=== PATIENT | male | born 1965 | race African-American/Black ===

== ENCOUNTER 2017-03-14 10:38 | Emergency (ER) | payer OTHER ==
[~2017-03-14 10:38] MED LIST: ALBUTEROL1.25 MG/3 IH; ALDACTONE25 MG PO; ASA PO; BG MC; COL100 PO; COREG6.25 MG PO; DEXPF IV; DIGOXIN0.125 M1 PO; ENALAPRIL5 M1 PO; GABAPENTIN400 M1 PO; HCTZ PO; HUMULIN R100 U/1 M1 SC; LAC PO; LASIX40 MG PO; LIPI20 PO; MSC15 PO; NITROSTAT0.4 MG SL; ROX5 PO; THERAGRAN-M1 TA4 PO; TYLENOL PO; VANCOMYCIN PER PHARM MC; VITC PO; ZOS3I IV
[2017-03-14 11:43] LABS: CALCIUM 8.5 mg/dL (8.5-10.1); CARBON DIOXIDE 27.8 mmol/L (21-32); CREATININE SERUM 1.5 mg/dL (0.7-1.3); POTASSIUM SERUM 3.9 mmol/L (3.5-5.1)
[2017-03-14 11:53] LABS: BILIRUBIN TOTAL 0.2 mg/dL (0.20-1.00); MAGNESIUM 1.7 mg/dL (1.8-2.4); T4(THYROXINE) 8.6 ug/dL (4.7-13.3); TOTAL PROTEIN, SERUM 8.1 g/dL (6.4-8.2); URIC ACID 6.5 mg/dL (3.5-7.2)
[2017-03-14 11:57] LABS: PLATELET COUNT 424 x10^3mcL (130-400); RED CELL DISTRIBUTION WIDTH 15.7 % (11.5-14.5)
[2017-03-14 11:59] LABS: ALBUMIN 2.8 g/dL (3.4-5.0)
[2017-03-14 12:08] LABS: UA SPECIFIC GRAVITY >=1.030 (1.005-1.035); microscopic required? YES; urine erythrocyte NEGATIVE (NEGATIVE)
[2017-03-14 12:27] LABS: AMPHETAMINE QUAL UR POSITIVE (NEG <=1000)
[2017-03-14 14:13] VITALS: BP 118/68
== END 2017-03-14 14:13 | disposition home or self-care (01) ==
LOC: ED 10:38
PROVIDERS: Emergency Medicine
DX: I13.0 Hypertensive heart and chronic kidney disease with heart failure and stage 1 through stage 4 chronic kidney disease, or unspecified chronic kidney disease (principal); R60.9 Edema, unspecified; E88.09 Other disorders of plasma-protein metabolism, not elsewhere classified; N18.2 Chronic kidney disease, stage 2 (mild); I50.9 Heart failure, unspecified; E11.9 Type 2 diabetes mellitus without complications; F15.10 Other stimulant abuse, uncomplicated; I25.10 Atherosclerotic heart disease of native coronary artery without angina pectoris; Z95.810 Presence of automatic (implantable) cardiac defibrillator; Z88.1 Allergy status to other antibiotic agents
CPT/HCPCS: 83880; J1940; Q0092

== ENCOUNTER 2017-07-26 10:25 | Emergency (ER) | payer OTHER ==
[~2017-07-26] VITALS: Ht 172.7 cm; Wt 117.0 kg
[~2017-07-26 10:25] MED LIST changes: +ATORVASTATIN CA40 M1 PO; +CARVEDILOL3.125 M1 PO; +GABAPENTIN800 M1 PO; +GOOD SENSE ASPI81 M3 PO
[2017-07-26 10:32] VITALS: Ht 172.7 cm; Wt 117.0 kg
[2017-07-26 12:43] VITALS: BP 128/64
== END 2017-07-26 12:43 | disposition home or self-care (01) ==
LOC: ED 10:25
DX: Z76.0 Encounter for issue of repeat prescription (principal); I11.0 Hypertensive heart disease with heart failure; I50.9 Heart failure, unspecified; E11.9 Type 2 diabetes mellitus without complications; Z88.1 Allergy status to other antibiotic agents

== ENCOUNTER 2017-08-06 04:54 | Inpatient (IN) | payer OTHER ==
[~2017-08-06] VITALS: Ht 170.2 cm; Wt 118.6 kg
[2017-08-06 05:00] VITALS: Ht 170.2 cm; Wt 118.6 kg
[2017-08-06 06:12] LABS: PLATELET COUNT 263 x10^3mcL (130-400)
[2017-08-06 06:13] LABS: BASOPHIL % 2.2 % (0-2); RED CELL DISTRIBUTION WIDTH 15.6 % (11.5-14.5)
[2017-08-06 06:24] LABS: CALCIUM 8.9 mg/dL (8.5-10.1); CARBON DIOXIDE 26.9 mmol/L (21-32); CREATININE SERUM 1.5 mg/dL (0.7-1.3); POTASSIUM SERUM 4.1 mmol/L (3.5-5.1)
[2017-08-06 06:30] LABS: BILIRUBIN TOTAL 0.32 mg/dL (0.20-1.00); TOTAL PROTEIN, SERUM 7.4 g/dL (6.4-8.2)
[2017-08-06 06:40] LABS: ALBUMIN 3.1 g/dL (3.4-5.0)
[2017-08-06 07:13] LABS: CALCIUM 8.7 mg/dL (8.5-10.1); MAGNESIUM 1.8 mg/dL (1.8-2.4)
[2017-08-06 08:59] LABS: microscopic required? YES; urine erythrocyte NEGATIVE (NEGATIVE)
[2017-08-06 09:04] LABS: AMPHETAMINE QUAL UR POSITIVE (See below)
[2017-08-06 10:37] VITALS: BP 145/89
[2017-08-06 10:37] LABS: PHOSPHOROUS 4.6 mg/dL (2.5-4.9)
[2017-08-06 10:48] LABS: FREE T4 1.03 ng/dL (0.76-1.46); FREE THYROXINE INDEX 3.2 ug/dL (1.4-4.5); T4(THYROXINE) 8.8 ug/dL (4.7-13.3)
[2017-08-06 20:32] VITALS: BP 121/70
[2017-08-06 22:39] VITALS: BP 121/70
[2017-08-06 23:07] LABS: T3 TOTAL 1.44 ng/mL
[2017-08-07 04:18] VITALS: BP 112/81
[2017-08-07 06:38] LABS: CALCIUM 8.8 mg/dL (8.5-10.1); CARBON DIOXIDE 28.1 mmol/L (21-32); CHLORIDE SERUM 105 mmol/L (98-107); CREATININE SERUM 1.8 mg/dL (0.7-1.3); GLUCOSE SERUM 98 mg/dL (74-106); POTASSIUM SERUM 4.3 mmol/L (3.5-5.1); SODIUM SERUM 142 mmol/L (136-145)
[2017-08-07 06:44] LABS: BASOPHIL % 0.6 % (0-2); PLATELET COUNT 280 x10^3mcL (130-400)
[2017-08-07 06:55] LABS: RED CELL DISTRIBUTION WIDTH 15.5 % (11.5-14.5)
[2017-08-07 09:05] VITALS: BP 124/88
[2017-08-07 13:05] VITALS: BP 127/89
[2017-08-07 16:09] VITALS: BP 107/67
[2017-08-07 21:43] VITALS: BP 150/95
[2017-08-08 05:54] VITALS: BP 146/102
[2017-08-08 06:20] LABS: BASOPHIL % 0.5 % (0-2); PLATELET COUNT 262 x10^3mcL (130-400)
[2017-08-08 06:35] LABS: CALCIUM 8.5 mg/dL (8.5-10.1); CARBON DIOXIDE 28.2 mmol/L (21-32); POTASSIUM SERUM 3.8 mmol/L (3.5-5.1)
[2017-08-08 06:49] LABS: CREATININE SERUM 1.7 mg/dL (0.7-1.3)
[2017-08-08 06:54] LABS: RED CELL DISTRIBUTION WIDTH 15.4 % (11.5-14.5)
[2017-08-08 08:43] VITALS: BP 128/80
[2017-08-08 12:21] VITALS: BP 143/85
[2017-08-08 16:17] VITALS: BP 138/86
[2017-08-08 21:07] VITALS: BP 125/76
[2017-08-09 05:39] VITALS: BP 141/97
== END 2017-08-09 05:44 | disposition left against medical advice (07) | DRG 194 ==
LOC: ED 04:54 → DU 09:14
PROVIDERS: Emergency Medicine; Family Medicine; Family Medicine Sports Medicine
DX: I11.0 Hypertensive heart disease with heart failure (principal); I21.A1 Myocardial infarction type 2; J96.01 Acute respiratory failure with hypoxia; I50.43 Acute on chronic combined systolic (congestive) and diastolic (congestive) heart failure; E87.2 Acidosis; I42.7 Cardiomyopathy due to drug and external agent; E44.1 Mild protein-calorie malnutrition; E11.40 Type 2 diabetes mellitus with diabetic neuropathy, unspecified; E78.5 Hyperlipidemia, unspecified; E66.8 Other obesity; M46.04 Spinal enthesopathy, thoracic region; E78.00 Pure hypercholesterolemia, unspecified; F15.10 Other stimulant abuse, uncomplicated; T43.625A Adverse effect of amphetamines, initial encounter; G47.33 Obstructive sleep apnea (adult) (pediatric); Z59.0 Homelessness; Z95.810 Presence of automatic (implantable) cardiac defibrillator; Z79.899 Other long term (current) drug therapy; Y92.89 Other specified places as the place of occurrence of the external cause; F17.210 Nicotine dependence, cigarettes, uncomplicated; Z91.19 Patient's noncompliance with other medical treatment and regimen
CPT/HCPCS: 36600; 83880; 84439; 94150; 99406; J1940; J7030; Q0092

== ENCOUNTER 2017-08-13 06:06 | Emergency (ER) | payer OTHER ==
[~2017-08-13] VITALS: Ht 172.7 cm; Wt 117.9 kg
[2017-08-13 06:15] VITALS: Ht 172.7 cm; Wt 117.9 kg
[2017-08-13 07:18] LABS: BASOPHIL % 0.7 % (0-2); PLATELET COUNT 260 x10^3mcL (130-400)
[2017-08-13 07:22] LABS: RED CELL DISTRIBUTION WIDTH 15.9 % (11.5-14.5)
[2017-08-13 07:50] LABS: CALCIUM 9.2 mg/dL (8.5-10.1); CARBON DIOXIDE 25.6 mmol/L (21-32); CREATININE SERUM 1.8 mg/dL (0.7-1.3)
[2017-08-13 07:57] LABS: ALBUMIN 3.2 g/dL (3.4-5.0); BILIRUBIN TOTAL 0.64 mg/dL (0.20-1.00); FREE T4 1.11 ng/dL (0.76-1.46); FREE THYROXINE INDEX 2.5 ug/dL (1.4-4.5); T4(THYROXINE) 7.9 ug/dL (4.7-13.3); TOTAL PROTEIN, SERUM 7.5 g/dL (6.4-8.2)
[2017-08-13 08:28] LABS: CHOLESTEROL/HDL RATIO 3.3
[2017-08-13 08:48] LABS: T3 TOTAL 1.54 ng/mL
[2017-08-13 09:03] LABS: microscopic required? YES; urine erythrocyte NEGATIVE (NEGATIVE)
[2017-08-13 09:15] VITALS: BP 126/73
[2017-08-13 10:08] LABS: AMPHETAMINE QUAL UR POSITIVE (See below)
== END 2017-08-13 10:07 | disposition home or self-care (01) ==
LOC: ED 06:06
PROVIDERS: Specialist
DX: J98.01 Acute bronchospasm (principal); F15.20 Other stimulant dependence, uncomplicated; I50.9 Heart failure, unspecified; I11.0 Hypertensive heart disease with heart failure; E11.40 Type 2 diabetes mellitus with diabetic neuropathy, unspecified; E78.00 Pure hypercholesterolemia, unspecified; Z88.1 Allergy status to other antibiotic agents
CPT/HCPCS: 83880; 84439; G0480; J1940; J7613; J7644

== ENCOUNTER 2017-09-04 08:23 | Emergency (ER) | payer OTHER ==
[~2017-09-04] VITALS: Ht 172.7 cm; Wt 117.7 kg
[2017-09-04 08:27] VITALS: Ht 172.7 cm; Wt 117.7 kg
[2017-09-04 09:06] LABS: CALCIUM 7.9 mg/dL (8.5-10.1); CARBON DIOXIDE 28.6 mmol/L (21-32); CREATININE SERUM 1.8 mg/dL (0.7-1.3); POTASSIUM SERUM 4.3 mmol/L (3.5-5.1)
[2017-09-04 09:11] LABS: BILIRUBIN TOTAL 0.6 mg/dL (0.20-1.00); TOTAL PROTEIN, SERUM 7.8 g/dL (6.4-8.2)
[2017-09-04 09:12] LABS: ALBUMIN 3.1 g/dL (3.4-5.0)
[2017-09-04 09:33] LABS: BASOPHIL % 0.5 % (0-2); PLATELET COUNT 243 x10^3mcL (130-400); RED CELL DISTRIBUTION WIDTH 16.2 % (11.5-14.5)
[2017-09-04 09:46] LABS: AMPHETAMINE QUAL UR NONE DETECTED (See below)
[2017-09-04 11:45] VITALS: BP 132/83
== END 2017-09-04 11:45 | disposition home or self-care (01) ==
LOC: ED 08:23
PROVIDERS: Emergency Medicine
PROC: 3E0F7GC Introduction of Other Therapeutic Substance into Respiratory Tract, Via Natural or Artificial Opening (ICD-10-PCS; principal; 2017-09-04)
DX: R07.89 Other chest pain (principal); R06.00 Dyspnea, unspecified; E11.9 Type 2 diabetes mellitus without complications; I10 Essential (primary) hypertension; I50.9 Heart failure, unspecified; E78.00 Pure hypercholesterolemia, unspecified; I25.2 Old myocardial infarction
CPT/HCPCS: 36415; 83880; J7613; Q0092

== ENCOUNTER 2017-09-14 06:50 | Inpatient (IN) | payer OTHER ==
[~2017-09-14] VITALS: Ht 172.7 cm; Wt 116.8 kg
[2017-09-14 07:42] LABS: BASOPHIL % 1.2 % (0-2); PLATELET COUNT 326 x10^3mcL (130-400)
[2017-09-14 07:46] LABS: RED CELL DISTRIBUTION WIDTH 16.3 % (11.5-14.5)
[2017-09-14 08:00] LABS: CALCIUM 8.8 mg/dL (8.5-10.1); CARBON DIOXIDE 25.2 mmol/L (21-32); CREATININE SERUM 1.7 mg/dL (0.7-1.3); POTASSIUM SERUM 4.4 mmol/L (3.5-5.1)
[2017-09-14 08:02] LABS: BILIRUBIN TOTAL 0.48 mg/dL (0.20-1.00); TOTAL PROTEIN, SERUM 7.3 g/dL (6.4-8.2)
[2017-09-14 09:07] LABS: AMPHETAMINE QUAL UR POSITIVE (See below)
[2017-09-14 10:24] LABS: T3 TOTAL 1.31 ng/mL
[2017-09-14 10:31] LABS: FREE T4 1.14 ng/dL (0.76-1.46); FREE THYROXINE INDEX 3.2 ug/dL (1.4-4.5); T4(THYROXINE) 9.5 ug/dL (4.7-13.3)
[2017-09-14 11:14] VITALS: BP 131/98
[2017-09-14 11:50] LABS: CHOLESTEROL/HDL RATIO 4.8; PHOSPHOROUS 4.1 mg/dL (2.5-4.9)
[2017-09-14 15:18] VITALS: BP 131/98
[2017-09-14 16:59] VITALS: BP 158/106
[2017-09-14 17:35] LABS: UA SPECIFIC GRAVITY 1.025 (1.005-1.035); microscopic required? YES; urine erythrocyte TRACE (NEGATIVE)
[2017-09-14 19:40] VITALS: BP 151/89
[2017-09-14 21:03] VITALS: BP 145/89
[2017-09-15 05:56] VITALS: BP 133/99
[2017-09-15 06:49] VITALS: BP 120/82
[2017-09-15 09:10] VITALS: BP 148/101
[2017-09-15 13:20] VITALS: BP 114/85
[2017-09-15 17:03] VITALS: BP 133/84
[2017-09-15 22:48] VITALS: BP 119/78
[2017-09-16 05:16] VITALS: BP 129/79
[2017-09-16 10:01] VITALS: BP 141/65
[2017-09-16 13:14] VITALS: BP 93/67
[2017-09-16 17:53] VITALS: BP 117/70
[2017-09-16 20:16] VITALS: BP 114/70
[2017-09-17 05:27] VITALS: BP 116/69
[2017-09-17 09:35] VITALS: BP 106/72
[2017-09-17 13:27] VITALS: BP 108/60
[2017-09-17 18:16] VITALS: BP 109/73
[2017-09-17 20:50] VITALS: BP 113/63
[2017-09-18 05:34] VITALS: BP 117/74
[2017-09-18 06:40] LABS: CALCIUM 9.3 mg/dL (8.5-10.1); CARBON DIOXIDE 32.7 mmol/L (21-32); CREATININE SERUM 1.9 mg/dL (0.7-1.3); POTASSIUM SERUM 4.9 mmol/L (3.5-5.1)
[2017-09-18 09:51] VITALS: BP 120/70
[2017-09-18 12:41] VITALS: BP 112/76
[2017-09-18 16:43] VITALS: BP 112/76
[2017-09-18 16:56] VITALS: BP 94/63
== END 2017-09-18 17:24 | disposition home or self-care (01) | DRG 194 ==
LOC: ED 06:50 → DU 09:03
PROVIDERS: Emergency Medicine; Family Medicine
DX: I50.43 Acute on chronic combined systolic (congestive) and diastolic (congestive) heart failure (principal); I21.A1 Myocardial infarction type 2; J96.01 Acute respiratory failure with hypoxia; N17.0 Acute kidney failure with tubular necrosis; E11.65 Type 2 diabetes mellitus with hyperglycemia; E44.1 Mild protein-calorie malnutrition; D68.69 Other thrombophilia; I42.8 Other cardiomyopathies; R00.0 Tachycardia, unspecified; F15.10 Other stimulant abuse, uncomplicated; E78.1 Pure hyperglyceridemia; E78.5 Hyperlipidemia, unspecified; E66.01 Morbid (severe) obesity due to excess calories; G47.33 Obstructive sleep apnea (adult) (pediatric); I25.2 Old myocardial infarction; Z68.39 Body mass index [BMI] 39.0-39.9, adult; Z87.891 Personal history of nicotine dependence; Z95.810 Presence of automatic (implantable) cardiac defibrillator
CPT/HCPCS: 36600; 83880; 84439; 94150; J1940; J2060; J7030; J7620; Q0092

== ENCOUNTER 2017-10-23 00:01 | Emergency (ER) | payer OTHER ==
[~2017-10-23] VITALS: Ht 172.7 cm; Wt 122.9 kg
[2017-10-23 00:05] VITALS: Ht 172.7 cm; Wt 122.9 kg
[2017-10-23 01:11] LABS: BASOPHIL % 0.2 % (0-2); PLATELET COUNT 263 x10^3mcL (130-400)
[2017-10-23 01:16] LABS: RED CELL DISTRIBUTION WIDTH 16.4 % (11.5-14.5)
[2017-10-23 01:19] LABS: CALCIUM 8.5 mg/dL (8.5-10.1); CARBON DIOXIDE 24.5 mmol/L (21-32); CREATININE SERUM 1.7 mg/dL (0.7-1.3); POTASSIUM SERUM 4.3 mmol/L (3.5-5.1)
[2017-10-23 01:30] LABS: BILIRUBIN TOTAL 0.42 mg/dL (0.20-1.00); CHOLESTEROL/HDL RATIO 3.3; TOTAL PROTEIN, SERUM 7.7 g/dL (6.4-8.2)
[2017-10-23 01:33] LABS: ALBUMIN 2.9 g/dL (3.4-5.0)
[2017-10-23 01:38] LABS: UA SPECIFIC GRAVITY 1.025 (1.005-1.035); microscopic required? YES; urine erythrocyte TRACE (NEGATIVE)
[2017-10-23 01:48] LABS: AMPHETAMINE QUAL UR POSITIVE (See below)
[2017-10-23 01:54] LABS: FREE T4 0.95 ng/dL (0.76-1.46); FREE THYROXINE INDEX 2.6 ug/dL (1.4-4.5); T4(THYROXINE) 7.6 ug/dL (4.7-13.3)
[2017-10-23 02:52] LABS: T3 TOTAL 1.11 ng/mL
[2017-10-23 04:01] VITALS: BP 155/96
== END 2017-10-23 04:01 | disposition home or self-care (01) ==
LOC: ED 00:01
PROVIDERS: Specialist
DX: I11.0 Hypertensive heart disease with heart failure (principal); I50.9 Heart failure, unspecified; F15.10 Other stimulant abuse, uncomplicated; E11.9 Type 2 diabetes mellitus without complications; G90.09 Other idiopathic peripheral autonomic neuropathy; Z88.0 Allergy status to penicillin; Z88.1 Allergy status to other antibiotic agents
CPT/HCPCS: 83880; 84439; J1940; Q0092

== ENCOUNTER 2017-11-04 11:39 | Emergency (ER) | payer OTHER ==
[2017-11-04 11:44] VITALS: Ht 172.7 cm
[2017-11-04 14:01] LABS: PLATELET COUNT 304 x10^3mcL (130-400)
[2017-11-04 14:12] LABS: RED CELL DISTRIBUTION WIDTH 16.7 % (11.5-14.5)
[2017-11-04 14:17] LABS: CALCIUM 9.4 mg/dL (8.5-10.1); CARBON DIOXIDE 26.3 mmol/L (21-32); POTASSIUM SERUM 4.4 mmol/L (3.5-5.1)
[2017-11-04 14:22] LABS: ALBUMIN 3.2 g/dL (3.4-5.0); CHOLESTEROL/HDL RATIO 3.4; TOTAL PROTEIN, SERUM 8.8 g/dL (6.4-8.2)
[2017-11-04 14:39] LABS: T3 TOTAL 1.39 ng/mL
[2017-11-04 14:49] LABS: FREE T4 1.15 ng/dL (0.76-1.46); T4(THYROXINE) 9.1 ug/dL (4.7-13.3)
[2017-11-04 17:41] VITALS: BP 125/73
== END 2017-11-04 17:41 | disposition home or self-care (01) ==
LOC: ED 11:39
PROVIDERS: Specialist
DX: I11.0 Hypertensive heart disease with heart failure (principal); I50.9 Heart failure, unspecified; F15.20 Other stimulant dependence, uncomplicated; E11.40 Type 2 diabetes mellitus with diabetic neuropathy, unspecified; E78.00 Pure hypercholesterolemia, unspecified; Z88.0 Allergy status to penicillin; Z88.1 Allergy status to other antibiotic agents; Z88.5 Allergy status to narcotic agent
CPT/HCPCS: 83880; 84439; J1940

== ENCOUNTER 2017-11-10 10:17 | Emergency (ER) | payer OTHER ==
[2017-11-10 11:00] LABS: CALCIUM 8.9 mg/dL (8.5-10.1); CARBON DIOXIDE 22.2 mmol/L (21-32); CREATININE SERUM 1.7 mg/dL (0.7-1.3); POTASSIUM SERUM 5.1 mmol/L (3.5-5.1)
[2017-11-10 11:04] LABS: BILIRUBIN TOTAL 0.9 mg/dL (0.20-1.00)
[2017-11-10 11:07] LABS: ALBUMIN 3.2 g/dL (3.4-5.0); TOTAL PROTEIN, SERUM 8.3 g/dL (6.4-8.2)
[2017-11-10 12:33] LABS: PLATELET COUNT 267 x10^3mcL (130-400); RED CELL DISTRIBUTION WIDTH 16.6 % (11.5-14.5)
[2017-11-10 12:52] LABS: ATYPICAL LYMPH 5 %; BAND NEUTROPHIL 1 % (0-10); BASOPHIL 0 % (0-2); SEGMENTED NEUTROPHILS 71 % (37-75)
[2017-11-10 12:53] LABS: rbc morphology (normal/abnorm) ABNORMAL (NORMAL)
[2017-11-10 12:54] LABS: PLATELET MORPHOLOGY PLATELETS NORMAL
[2017-11-10 13:39] LABS: AMPHETAMINE QUAL UR POSITIVE (See below)
[2017-11-10 14:21] VITALS: BP 128/51
== END 2017-11-10 14:21 | disposition home or self-care (01) ==
LOC: ED 10:17
PROVIDERS: Emergency Medicine
DX: R06.00 Dyspnea, unspecified (principal); R06.02 Shortness of breath; F15.10 Other stimulant abuse, uncomplicated; I50.9 Heart failure, unspecified; I11.9 Hypertensive heart disease without heart failure; E11.40 Type 2 diabetes mellitus with diabetic neuropathy, unspecified; E78.00 Pure hypercholesterolemia, unspecified; Z88.0 Allergy status to penicillin; Z88.1 Allergy status to other antibiotic agents; Z88.6 Allergy status to analgesic agent
CPT/HCPCS: 36415; 83880; Q0092

== ENCOUNTER 2017-11-25 15:13 | Inpatient (IN) | payer OTHER ==
[~2017-11-25] VITALS: Ht 172.7 cm; Wt 112.6 kg
[2017-11-25 15:16] VITALS: Ht 172.7 cm; Wt 112.6 kg
[2017-11-25 16:04] LABS: BASOPHIL % 0.8 % (0-2); PLATELET COUNT 288 x10^3mcL (130-400)
[2017-11-25 16:05] LABS: RED CELL DISTRIBUTION WIDTH 16.7 % (11.5-14.5)
[2017-11-25 16:13] LABS: CALCIUM 8.2 mg/dL (8.5-10.1); CARBON DIOXIDE 25.9 mmol/L (21-32); CREATININE SERUM 1.8 mg/dL (0.7-1.3); POTASSIUM SERUM 3.9 mmol/L (3.5-5.1)
[2017-11-25 16:22] LABS: BILIRUBIN TOTAL 0.49 mg/dL (0.20-1.00); TOTAL PROTEIN, SERUM 7.2 g/dL (6.4-8.2)
[2017-11-25 16:27] LABS: ALBUMIN 2.7 g/dL (3.4-5.0)
[2017-11-25 17:50] LABS: CHOLESTEROL/HDL RATIO 3.1; MAGNESIUM 1.7 mg/dL (1.8-2.4); PHOSPHOROUS 4.4 mg/dL (2.5-4.9)
[2017-11-25 17:55] LABS: T3 TOTAL 1.1 ng/mL
[2017-11-25 17:57] VITALS: BP 145/87
[2017-11-25 18:26] LABS: FREE T4 1.07 ng/dL (0.76-1.46); FREE THYROXINE INDEX 2.2 ug/dL (1.4-4.5); T4(THYROXINE) 6.1 ug/dL (4.7-13.3)
[2017-11-25 19:20] VITALS: BP 136/96
[2017-11-25 21:22] LABS: microscopic required? YES; urine erythrocyte NEGATIVE (NEGATIVE)
[2017-11-25 21:30] LABS: AMPHETAMINE QUAL UR POSITIVE (See below)
[2017-11-26 05:19] VITALS: BP 126/85
[2017-11-26 06:54] LABS: BASOPHIL % 0.9 % (0-2); PLATELET COUNT 302 x10^3mcL (130-400)
[2017-11-26 06:58] LABS: CALCIUM 8.8 mg/dL (8.5-10.1); CARBON DIOXIDE 25.8 mmol/L (21-32); CREATININE SERUM 1.6 mg/dL (0.7-1.3); MAGNESIUM 1.7 mg/dL (1.8-2.4); PHOSPHOROUS 4.3 mg/dL (2.5-4.9); POTASSIUM SERUM 3.7 mmol/L (3.5-5.1)
[2017-11-26 07:00] LABS: RED CELL DISTRIBUTION WIDTH 16.8 % (11.5-14.5)
[2017-11-26 08:51] VITALS: BP 142/103
[2017-11-26 12:32] VITALS: BP 108/62
[2017-11-26 15:20] VITALS: BP 108/62
== END 2017-11-26 16:00 | disposition home or self-care (01) | DRG 190 ==
LOC: ED 15:13 → DU 17:10
PROVIDERS: Emergency Medicine; Family Medicine
DX: I21.A1 Myocardial infarction type 2 (principal); J96.00 Acute respiratory failure, unspecified whether with hypoxia or hypercapnia; N17.0 Acute kidney failure with tubular necrosis; I50.43 Acute on chronic combined systolic (congestive) and diastolic (congestive) heart failure; E43 Unspecified severe protein-calorie malnutrition; E11.65 Type 2 diabetes mellitus with hyperglycemia; D68.69 Other thrombophilia; I11.0 Hypertensive heart disease with heart failure; I42.8 Other cardiomyopathies; E86.0 Dehydration; F15.10 Other stimulant abuse, uncomplicated; Z91.14 Patient's other noncompliance with medication regimen; I25.2 Old myocardial infarction; Z68.39 Body mass index [BMI] 39.0-39.9, adult; Z87.891 Personal history of nicotine dependence; Z95.810 Presence of automatic (implantable) cardiac defibrillator
CPT/HCPCS: 82962; 83880; 84439; 94150; G0480; J1160; J1940; J7030; Q0092

== ENCOUNTER 2017-12-17 01:38 | Inpatient (IN) | payer OTHER ==
[~2017-12-17] VITALS: Ht 172.7 cm; Wt 112.0 kg
[2017-12-17 02:17] LABS: BASOPHIL % 0.7 % (0-2); PLATELET COUNT 326 x10^3mcL (130-400)
[2017-12-17 02:19] LABS: RED CELL DISTRIBUTION WIDTH 17.1 % (11.5-14.5)
[2017-12-17 02:58] LABS: POTASSIUM SERUM 3.9 mmol/L (3.5-5.1)
[2017-12-17 02:59] LABS: ALBUMIN 2.6 g/dL (3.4-5.0); BILIRUBIN TOTAL 0.39 mg/dL (0.20-1.00); CALCIUM 8.1 mg/dL (8.5-10.1); TOTAL PROTEIN, SERUM 7.1 g/dL (6.4-8.2)
[2017-12-17 04:38] LABS: T3 TOTAL 1.01 ng/mL
[2017-12-17 04:46] LABS: PHOSPHOROUS 4.2 mg/dL (2.5-4.9)
[2017-12-17 04:48] LABS: CHOLESTEROL/HDL RATIO 3.2
[2017-12-17 04:49] LABS: FREE T4 1.06 ng/dL (0.76-1.46); FREE THYROXINE INDEX 2.7 ug/dL (1.4-4.5); T4(THYROXINE) 7.3 ug/dL (4.7-13.3)
[2017-12-17 04:59] LABS: MAGNESIUM 1.9 mg/dL (1.8-2.4)
[2017-12-17 07:17] LABS: microscopic required? YES; urine erythrocyte NEGATIVE (NEGATIVE)
[2017-12-17 07:34] LABS: AMPHETAMINE QUAL UR POSITIVE (See below)
[2017-12-17 09:12] VITALS: Ht 172.7 cm; Wt 112.0 kg
[2017-12-17 09:13] VITALS: BP 145/81
[2017-12-17 09:21] VITALS: BP 138/68
[2017-12-17 11:42] VITALS: BP 145/81
[2017-12-17 16:12] VITALS: BP 135/77
[2017-12-17 19:44] VITALS: BP 138/89
[2017-12-18 00:35] VITALS: BP 115/73
[2017-12-18 03:09] LABS: PLATELET COUNT 307 x10^3mcL (130-400)
[2017-12-18 03:21] LABS: CALCIUM 8.5 mg/dL (8.5-10.1); CARBON DIOXIDE 25.1 mmol/L (21-32); CREATININE SERUM 1.8 mg/dL (0.7-1.3); MAGNESIUM 1.7 mg/dL (1.8-2.4); PHOSPHOROUS 5.1 mg/dL (2.5-4.9); POTASSIUM SERUM 3.7 mmol/L (3.5-5.1)
[2017-12-18 03:39] VITALS: BP 146/74
[2017-12-18 07:30] VITALS: BP 136/89
[2017-12-18 11:21] VITALS: BP 130/59
[2017-12-18 15:23] VITALS: BP 103/60
[2017-12-18 20:00] VITALS: BP 123/78
[2017-12-19] VITALS: BP 129/69
[2017-12-19 04:00] VITALS: BP 129/8
[2017-12-19 06:22] LABS: BASOPHIL % 0.8 % (0-2); PLATELET COUNT 351 x10^3mcL (130-400)
[2017-12-19 06:26] LABS: RED CELL DISTRIBUTION WIDTH 16.8 % (11.5-14.5)
[2017-12-19 06:33] LABS: CALCIUM 8.5 mg/dL (8.5-10.1); CARBON DIOXIDE 25.9 mmol/L (21-32); CREATININE SERUM 1.6 mg/dL (0.7-1.3); MAGNESIUM 1.6 mg/dL (1.8-2.4); PHOSPHOROUS 3.4 mg/dL (2.5-4.9)
[2017-12-19 07:50] VITALS: BP 131/89
[2017-12-19 12:35] VITALS: BP 103/66
[2017-12-19 17:00] VITALS: BP 120/80
[2017-12-19 21:21] VITALS: BP 115/75
[2017-12-20 05:28] VITALS: BP 138/82
[2017-12-20 09:00] LABS: BASOPHIL % 0.3 % (0-2); PLATELET COUNT 369 x10^3mcL (130-400)
[2017-12-20 09:02] LABS: CALCIUM 8.7 mg/dL (8.5-10.1); CARBON DIOXIDE 30.9 mmol/L (21-32); CREATININE SERUM 1.7 mg/dL (0.7-1.3)
[2017-12-20 09:10] LABS: RED CELL DISTRIBUTION WIDTH 17.3 % (11.5-14.5)
[2017-12-20 10:06] VITALS: BP 131/70
[2017-12-20 14:11] VITALS: BP 113/61
[2017-12-20 16:54] VITALS: BP 106/65
[2017-12-20 21:12] VITALS: BP 119/78
[2017-12-21 05:36] VITALS: BP 102/58
[2017-12-21 06:26] LABS: BASOPHIL % 0.4 % (0-2); PLATELET COUNT 347 x10^3mcL (130-400)
[2017-12-21 06:41] LABS: RED CELL DISTRIBUTION WIDTH 16.8 % (11.5-14.5)
[2017-12-21 07:02] LABS: CALCIUM 8.9 mg/dL (8.5-10.1); CREATININE SERUM 1.6 mg/dL (0.7-1.3); POTASSIUM SERUM 4.6 mmol/L (3.5-5.1)
[2017-12-21 07:53] LABS: CARBON DIOXIDE 27.3 mmol/L (21-32)
[2017-12-21 09:20] VITALS: BP 127/75
[2017-12-21 13:43] VITALS: BP 99/51
[2017-12-21 17:14] VITALS: BP 141/58
[2017-12-21 20:38] VITALS: BP 110/53
[2017-12-22 05:58] VITALS: BP 114/70
[2017-12-22 06:37] LABS: CALCIUM 8.5 mg/dL (8.5-10.1); CARBON DIOXIDE 27.6 mmol/L (21-32); CREATININE SERUM 1.7 mg/dL (0.7-1.3); POTASSIUM SERUM 4.2 mmol/L (3.5-5.1)
[2017-12-22 06:55] LABS: BASOPHIL % 0.6 % (0-2); PLATELET COUNT 325 x10^3mcL (130-400)
[2017-12-22 09:54] VITALS: BP 100/59
[2017-12-22 13:00] VITALS: BP 114/73
[2017-12-22 17:31] VITALS: BP 110/74
[2017-12-22 20:18] VITALS: BP 113/74
[2017-12-23 05:03] VITALS: BP 112/75
[2017-12-23 07:13] LABS: CALCIUM 9.2 mg/dL (8.5-10.1); CARBON DIOXIDE 26.4 mmol/L (21-32); CREATININE SERUM 1.7 mg/dL (0.7-1.3); POTASSIUM SERUM 4.7 mmol/L (3.5-5.1)
[2017-12-23 07:35] LABS: BASOPHIL % 0.3 % (0-2); PLATELET COUNT 361 x10^3mcL (130-400)
[2017-12-23 07:37] LABS: RED CELL DISTRIBUTION WIDTH 16.4 % (11.5-14.5)
[2017-12-23 08:25] VITALS: BP 112/75
[2017-12-23 09:16] VITALS: BP 125/76
[2017-12-23 13:22] VITALS: BP 124/56
[2017-12-23 17:08] VITALS: BP 107/62
[2017-12-23 21:31] VITALS: BP 102/57
[2017-12-24 05:25] VITALS: BP 111/72
[2017-12-24 09:07] VITALS: BP 113/69
[2017-12-24 12:47] VITALS: BP 97/52
[2017-12-24 16:25] VITALS: BP 104/68
[2017-12-24 20:36] VITALS: BP 98/55
[2017-12-25 08:30] VITALS: BP 100/75
[2017-12-25] MEDS ORDERED: GABAPENTIN400 M1 PO (08:56)
[2017-12-25] MEDS ORDERED: COR6 PO (08:56)
[2017-12-25] MEDS ORDERED: COUMADIN7.5 MG PO (08:58)
[2017-12-25 10:57] VITALS: BP 100/75
== END 2017-12-25 12:00 | disposition home or self-care (01) | DRG 194 ==
LOC: ED 01:38 → DU 03:33 → IC 03:33 → DU 12-19 12:35
PROVIDERS: Emergency Medicine; Family Medicine; Internal Medicine
DX: I50.43 Acute on chronic combined systolic (congestive) and diastolic (congestive) heart failure (principal); J96.01 Acute respiratory failure with hypoxia; E44.0 Moderate protein-calorie malnutrition; N17.9 Acute kidney failure, unspecified; F15.20 Other stimulant dependence, uncomplicated; E11.42 Type 2 diabetes mellitus with diabetic polyneuropathy; E83.42 Hypomagnesemia; I27.20 Pulmonary hypertension, unspecified; N18.4 Chronic kidney disease, stage 4 (severe); I34.0 Nonrheumatic mitral (valve) insufficiency; I36.1 Nonrheumatic tricuspid (valve) insufficiency; I13.0 Hypertensive heart and chronic kidney disease with heart failure and stage 1 through stage 4 chronic kidney disease, or unspecified chronic kidney disease; I42.0 Dilated cardiomyopathy; J44.9 Chronic obstructive pulmonary disease, unspecified; I24.9 Acute ischemic heart disease, unspecified; G47.33 Obstructive sleep apnea (adult) (pediatric); I25.2 Old myocardial infarction; Z79.82 Long term (current) use of aspirin; Z68.39 Body mass index [BMI] 39.0-39.9, adult; Z87.891 Personal history of nicotine dependence; Z79.01 Long term (current) use of anticoagulants; Z95.810 Presence of automatic (implantable) cardiac defibrillator; Z91.14 Patient's other noncompliance with medication regimen; I25.10 Atherosclerotic heart disease of native coronary artery without angina pectoris
CPT/HCPCS: 36600; 82962; 83880; 84439; 94150; J1160; J1644; J1940; J2270; J2405; J3475; J7040; J7620; Q0092

== ENCOUNTER 2018-01-16 01:59 | Inpatient (IN) | payer OTHER ==
[2018-01-16] VITALS (7 sets, daily range): BP systolic 101–134; BP diastolic 52–97; Ht 172.7 cm; Wt 110.2 kg
[~2018-01-16] VITALS: Ht 172.7 cm; Wt 110.2 kg
[~2018-01-16 01:59] MED LIST changes: +COR6 PO; +COUMADIN7.5 MG PO
[2018-01-16 02:58] LABS: PLATELET COUNT 216 x10^3mcL (130-400)
[2018-01-16 03:01] LABS: UA SPECIFIC GRAVITY >=1.030 (1.005-1.035); microscopic required? YES; urine erythrocyte 2+ (NEGATIVE)
[2018-01-16 03:02] LABS: RED CELL DISTRIBUTION WIDTH 18.3 % (11.5-14.5)
[2018-01-16 03:10] LABS: AMPHETAMINE QUAL UR POSITIVE (See below)
[2018-01-16 03:10] LABS: CALCIUM 8.7 mg/dL (8.5-10.1); CARBON DIOXIDE 26.1 mmol/L (21-32); CHLORIDE SERUM 101 mmol/L (98-107); CREATININE SERUM 2.3 mg/dL (0.7-1.3); GFR1 32 mL/min; GLUCOSE SERUM 116 mg/dL (74-106); SODIUM SERUM 138 mmol/L (136-145)
[2018-01-16 03:23] LABS: ALBUMIN 2.8 g/dL (3.4-5.0); ALKALINE PHOSPHATASE 74 U/L (46-116); ALT/SGPT 53 U/L (16-63); AST/SGOT 57 U/L (15-37); BILIRUBIN TOTAL 1.1 mg/dL (0.20-1.00); FREE T4 1.09 ng/dL (0.76-1.46); LIPASE 146 IU/L (73-393); TOTAL PROTEIN, SERUM 7.8 g/dL (6.4-8.2)
[2018-01-16 06:46] LABS: CHOLESTEROL/HDL RATIO 3.7; MAGNESIUM 1.4 mg/dL (1.8-2.4); PHOSPHOROUS 3.6 mg/dL (2.5-4.9)
[2018-01-17 05:48] VITALS: BP 100/71
[2018-01-17 06:54] LABS: CARBON DIOXIDE 26.9 mmol/L (21-32); CREATININE SERUM 2.1 mg/dL (0.7-1.3); MAGNESIUM 1.8 mg/dL (1.8-2.4); POTASSIUM SERUM 4.1 mmol/L (3.5-5.1)
[2018-01-17 07:21] LABS: BASOPHIL % 0.5 % (0-2); PLATELET COUNT 228 x10^3mcL (130-400)
[2018-01-17 07:31] LABS: RED CELL DISTRIBUTION WIDTH 16.7 % (11.5-14.5)
[2018-01-17 10:17] VITALS: BP 110/70
[2018-01-17 13:19] VITALS: BP 99/57
[2018-01-17 16:26] VITALS: BP 100/62
[2018-01-17 21:46] VITALS: BP 116/74
[2018-01-18 01:35] VITALS: BP 106/63
[2018-01-18 05:13] VITALS: BP 100/62
[2018-01-18 06:05] LABS: CALCIUM 8.3 mg/dL (8.5-10.1); CARBON DIOXIDE 27.7 mmol/L (21-32); POTASSIUM SERUM 4.2 mmol/L (3.5-5.1)
[2018-01-18 07:37] LABS: BASOPHIL % 0.4 % (0-2); PLATELET COUNT 211 x10^3mcL (130-400); RED CELL DISTRIBUTION WIDTH 17.7 % (11.5-14.5)
[2018-01-18 10:03] VITALS: BP 100/69
[2018-01-18 13:35] VITALS: BP 91/52
[2018-01-18 16:10] VITALS: BP 129/63
[2018-01-18 21:05] VITALS: BP 104/62
[2018-01-19 06:25] VITALS: BP 103/56
[2018-01-19 07:37] LABS: CALCIUM 8.8 mg/dL (8.5-10.1); CARBON DIOXIDE 25.5 mmol/L (21-32); CREATININE SERUM 1.8 mg/dL (0.7-1.3); MAGNESIUM 1.7 mg/dL (1.8-2.4); PHOSPHOROUS 4.2 mg/dL (2.5-4.9); POTASSIUM SERUM 5.1 mmol/L (3.5-5.1)
[2018-01-19 07:41] LABS: PLATELET COUNT 230 x10^3mcL (130-400)
[2018-01-19 07:42] LABS: BASOPHIL % 0 % (0-2); RED CELL DISTRIBUTION WIDTH 17.5 % (11.5-14.5)
[2018-01-19 09:13] VITALS: BP 114/71
[2018-01-19 12:46] VITALS: BP 109/67
[2018-01-19 13:59] VITALS: BP 109/67
== END 2018-01-19 14:00 | disposition left against medical advice (07) | DRG 190 ==
LOC: ED 01:59 → DU 05:24 → IC 05:24 → DU 17:20 → IC 17:21 → DU 17:48
PROVIDERS: Emergency Medicine; Family Medicine
DX: I21.A1 Myocardial infarction type 2 (principal); N17.0 Acute kidney failure with tubular necrosis; J96.01 Acute respiratory failure with hypoxia; E43 Unspecified severe protein-calorie malnutrition; I50.23 Acute on chronic systolic (congestive) heart failure; D68.69 Other thrombophilia; E11.22 Type 2 diabetes mellitus with diabetic chronic kidney disease; E11.65 Type 2 diabetes mellitus with hyperglycemia; E83.42 Hypomagnesemia; J44.1 Chronic obstructive pulmonary disease with (acute) exacerbation; I13.0 Hypertensive heart and chronic kidney disease with heart failure and stage 1 through stage 4 chronic kidney disease, or unspecified chronic kidney disease; N18.3 Chronic kidney disease, stage 3 (moderate); I11.9 Hypertensive heart disease without heart failure; I25.10 Atherosclerotic heart disease of native coronary artery without angina pectoris; F15.10 Other stimulant abuse, uncomplicated; E03.9 Hypothyroidism, unspecified; E78.5 Hyperlipidemia, unspecified; I25.2 Old myocardial infarction; Z68.38 Body mass index [BMI] 38.0-38.9, adult; Z87.891 Personal history of nicotine dependence; Z95.810 Presence of automatic (implantable) cardiac defibrillator; Z79.01 Long term (current) use of anticoagulants; Z79.82 Long term (current) use of aspirin; Z91.14 Patient's other noncompliance with medication regimen
CPT/HCPCS: 82962; 83880; 84439; 94150; 97110-GP; G0480; J1644; J1940; J1956; J2060; J2920; J3475; J7050; J7620; Q0092

== ENCOUNTER 2018-01-31 22:53 | Emergency (ER) | payer OTHER | END 2018-02-01 00:56 | disposition other institution (70) | LOC: ED 22:53 | DX: Z02.89 Encounter for other administrative examinations (principal) ==

== ENCOUNTER 2018-01-31 22:53 | Emergency (ER) | payer OTHER ==
[~2018-01-31] VITALS: Ht 172.7 cm; Wt 113.4 kg
[2018-01-31 22:59] VITALS: Ht 172.7 cm; Wt 113.4 kg
[2018-02-01 00:05] LABS: AMPHETAMINE QUAL UR POSITIVE (See below)
[2018-02-01 00:56] VITALS: BP 125/76
== END 2018-02-01 00:56 | disposition other institution (70) ==
LOC: ED 22:53
PROVIDERS: Emergency Medicine
DX: I11.0 Hypertensive heart disease with heart failure (principal); I50.89 Other heart failure; F15.90 Other stimulant use, unspecified, uncomplicated; E11.9 Type 2 diabetes mellitus without complications; E78.00 Pure hypercholesterolemia, unspecified; Z88.0 Allergy status to penicillin; Z88.6 Allergy status to analgesic agent; Z88.1 Allergy status to other antibiotic agents; Z88.5 Allergy status to narcotic agent; Z98.890 Other specified postprocedural states; Z79.01 Long term (current) use of anticoagulants

== ENCOUNTER 2018-02-28 10:55 | Emergency (ER) | payer OTHER ==
[~2018-02-28] VITALS: Ht 172.7 cm; Wt 109.8 kg
[2018-02-28 11:14] VITALS: Ht 172.7 cm; Wt 109.8 kg
[2018-02-28 14:55] VITALS: BP 103/78
== END 2018-02-28 14:55 | disposition home or self-care (01) ==
LOC: ED 10:55
DX: E11.40 Type 2 diabetes mellitus with diabetic neuropathy, unspecified (principal); I11.0 Hypertensive heart disease with heart failure; I50.9 Heart failure, unspecified; I25.2 Old myocardial infarction; E78.00 Pure hypercholesterolemia, unspecified; Z95.810 Presence of automatic (implantable) cardiac defibrillator; Z88.0 Allergy status to penicillin; Z88.6 Allergy status to analgesic agent; Z88.5 Allergy status to narcotic agent; Z88.1 Allergy status to other antibiotic agents
CPT/HCPCS: J3010; J3490

== ENCOUNTER 2018-03-02 11:49 | Emergency (ER) | payer OTHER ==
[~2018-03-02] VITALS: Ht 172.7 cm; Wt 109.8 kg
[2018-03-02 12:08] VITALS: BP 111/73; Ht 172.7 cm; Wt 109.8 kg
== END 2018-03-02 14:54 | disposition home or self-care (01) ==
LOC: ED 11:49
DX: E11.42 Type 2 diabetes mellitus with diabetic polyneuropathy (principal); I11.0 Hypertensive heart disease with heart failure; I50.9 Heart failure, unspecified; E78.00 Pure hypercholesterolemia, unspecified; I25.2 Old myocardial infarction; Z95.810 Presence of automatic (implantable) cardiac defibrillator; Z88.2 Allergy status to sulfonamides; Z88.1 Allergy status to other antibiotic agents
CPT/HCPCS: J1885; J3490

== ENCOUNTER 2018-04-06 13:42 | Inpatient (IN) | payer OTHER ==
[~2018-04-06] VITALS: Ht 172.7 cm; Wt 80.9 kg
[2018-04-06 13:51] VITALS: Ht 172.7 cm; Wt 80.9 kg
[2018-04-06 16:31] LABS: BASOPHIL % 0.4 % (0-2); PLATELET COUNT 256 x10^3mcL (130-400)
[2018-04-06 16:33] LABS: RED CELL DISTRIBUTION WIDTH 19.3 % (11.5-14.5)
[2018-04-06 16:37] LABS: CALCIUM 8.8 mg/dL (8.5-10.1); CARBON DIOXIDE 28.7 mmol/L (21-32); CREATININE SERUM 1.8 mg/dL (0.7-1.3); POTASSIUM SERUM 4.1 mmol/L (3.5-5.1)
[2018-04-06 16:42] LABS: BILIRUBIN TOTAL 1.8 mg/dL (0.20-1.00); TOTAL PROTEIN, SERUM 7.6 g/dL (6.4-8.2)
[2018-04-06 16:43] LABS: ALBUMIN 2.7 g/dL (3.4-5.0)
[2018-04-06 19:20] VITALS: BP 115/68
[2018-04-06 22:02] VITALS: BP 124/76
[2018-04-07 05:31] VITALS: BP 104/59
[2018-04-07 08:13] LABS: CALCIUM 8.7 mg/dL (8.5-10.1); CARBON DIOXIDE 27.5 mmol/L (21-32); CREATININE SERUM 1.6 mg/dL (0.7-1.3); MAGNESIUM 1.4 mg/dL (1.8-2.4); POTASSIUM SERUM 3.6 mmol/L (3.5-5.1)
[2018-04-07 09:08] VITALS: BP 114/67
[2018-04-07 12:39] VITALS: BP 109/62
[2018-04-07 16:38] VITALS: BP 104/68
[2018-04-07 21:26] VITALS: BP 114/73
[2018-04-08 05:05] VITALS: BP 110/70
[2018-04-08 07:38] LABS: CALCIUM 8.6 mg/dL (8.5-10.1); CARBON DIOXIDE 29.1 mmol/L (21-32); CREATININE SERUM 1.7 mg/dL (0.7-1.3)
[2018-04-08 07:58] LABS: BASOPHIL % 1.1 % (0-2); PLATELET COUNT 209 x10^3mcL (130-400)
[2018-04-08 08:56] LABS: RED CELL DISTRIBUTION WIDTH 17.4 % (11.5-14.5)
[2018-04-08 10:01] VITALS: BP 110/50
[2018-04-08 13:31] VITALS: BP 94/58
[2018-04-08 18:43] VITALS: BP 111/78
[2018-04-08 21:56] VITALS: BP 100/50
[2018-04-09] VITALS (7 sets, daily range): BP systolic 89–1000; BP diastolic 47–67
[2018-04-09 06:54] LABS: CALCIUM 8.6 mg/dL (8.5-10.1); CARBON DIOXIDE 26.8 mmol/L (21-32); CREATININE SERUM 1.7 mg/dL (0.7-1.3); POTASSIUM SERUM 4.4 mmol/L (3.5-5.1)
[2018-04-10 05:31] VITALS: BP 99/56
[2018-04-10 10:21] VITALS: BP 104/39
[2018-04-10 14:06] LABS: CALCIUM 8.8 mg/dL (8.5-10.1); CARBON DIOXIDE 27.4 mmol/L (21-32); CREATININE SERUM 1.6 mg/dL (0.7-1.3); POTASSIUM SERUM 4.3 mmol/L (3.5-5.1)
[2018-04-10 14:23] VITALS: BP 118/80
[2018-04-10 14:50] LABS: BASOPHIL % 0.4 % (0-2); PLATELET COUNT 213 x10^3mcL (130-400); RED CELL DISTRIBUTION WIDTH 18.4 % (11.5-14.5)
[2018-04-10 17:25] VITALS: BP 106/64
[2018-04-10 21:54] VITALS: BP 114/71
[2018-04-11 05:41] VITALS: BP 100/61
[2018-04-11 10:24] VITALS: BP 106/62
[2018-04-11 14:36] VITALS: BP 108/64
[2018-04-11 16:18] VITALS: BP 99/61
[2018-04-11 21:14] VITALS: BP 93/55
[2018-04-12 05:14] VITALS: BP 106/64
[2018-04-12 08:24] VITALS: BP 103/70
[2018-04-12 11:56] VITALS: BP 99/65
== END 2018-04-12 16:15 | DRG 207 ==
LOC: ED 13:42 → DU 18:15 → MU 04-12 07:59
PROVIDERS: Emergency Medicine; Internal Medicine Pulmonary Disease; ADMIT Internal Medicine Pulmonary Disease
DX: I51.3 Intracardiac thrombosis, not elsewhere classified (principal); I50.21 Acute systolic (congestive) heart failure; I27.20 Pulmonary hypertension, unspecified; E11.65 Type 2 diabetes mellitus with hyperglycemia; I10 Essential (primary) hypertension; I34.0 Nonrheumatic mitral (valve) insufficiency; I36.1 Nonrheumatic tricuspid (valve) insufficiency; F15.10 Other stimulant abuse, uncomplicated; I25.5 Ischemic cardiomyopathy; G47.33 Obstructive sleep apnea (adult) (pediatric); Z59.0 Homelessness; I25.2 Old myocardial infarction; Z68.39 Body mass index [BMI] 39.0-39.9, adult; Z79.01 Long term (current) use of anticoagulants; F17.210 Nicotine dependence, cigarettes, uncomplicated; Z95.810 Presence of automatic (implantable) cardiac defibrillator; Z91.14 Patient's other noncompliance with medication regimen
CPT/HCPCS: 82962; 83880; J1940; Q0092

== ENCOUNTER 2018-05-19 21:07 | Inpatient (IN) | payer OTHER ==
[~2018-05-19] VITALS: Ht 172.7 cm; Wt 105.9 kg
[2018-05-19 21:24] VITALS: Ht 172.7 cm; Wt 105.9 kg
[2018-05-19 22:11] LABS: BASOPHIL % 1.1 % (0-2); PLATELET COUNT 252 x10^3mcL (130-400)
[2018-05-19 22:12] LABS: RED CELL DISTRIBUTION WIDTH 18.8 % (11.5-14.5)
[2018-05-19 22:23] LABS: CALCIUM 8.5 mg/dL (8.5-10.1); CARBON DIOXIDE 25.3 mmol/L (21-32); CREATININE SERUM 1.6 mg/dL (0.7-1.3); POTASSIUM SERUM 4.1 mmol/L (3.5-5.1)
[2018-05-19 22:27] LABS: BILIRUBIN TOTAL 0.62 mg/dL (0.20-1.00); TOTAL PROTEIN, SERUM 6.8 g/dL (6.4-8.2)
[2018-05-19 22:32] LABS: ALBUMIN 2.8 g/dL (3.4-5.0)
[2018-05-20] VITALS (8 sets, daily range): BP systolic 106–164; BP diastolic 73–91
[2018-05-20 00:37] LABS: MAGNESIUM 1.5 mg/dL (1.8-2.4); PHOSPHOROUS 4.6 mg/dL (2.5-4.9)
[2018-05-20 00:51] LABS: FREE THYROXINE INDEX 2.5 ug/dL (1.4-4.5); T4(THYROXINE) 6.9 ug/dL (4.7-13.3)
[2018-05-20 06:59] LABS: CALCIUM 8.4 mg/dL (8.5-10.1); CARBON DIOXIDE 26.5 mmol/L (21-32); CREATININE SERUM 1.5 mg/dL (0.7-1.3); MAGNESIUM 1.5 mg/dL (1.8-2.4); PHOSPHOROUS 4.3 mg/dL (2.5-4.9); POTASSIUM SERUM 3.4 mmol/L (3.5-5.1)
[2018-05-20 07:13] LABS: BASOPHIL % 0.8 % (0-2); PLATELET COUNT 226 x10^3mcL (130-400)
[2018-05-20 07:16] LABS: RED CELL DISTRIBUTION WIDTH 19.4 % (11.5-14.5)
[2018-05-20 08:41] LABS: T3 TOTAL 1.01 ng/mL
[2018-05-21] VITALS (7 sets, daily range): BP systolic 113–135; BP diastolic 47–95
[2018-05-21 06:58] LABS: CALCIUM 8.5 mg/dL (8.5-10.1); CREATININE SERUM 1.6 mg/dL (0.7-1.3); MAGNESIUM 1.9 mg/dL (1.8-2.4); POTASSIUM SERUM 4.2 mmol/L (3.5-5.1)
[2018-05-21 07:04] LABS: BASOPHIL % 0.4 % (0-2); PLATELET COUNT 266 x10^3mcL (130-400); RED CELL DISTRIBUTION WIDTH 19.8 % (11.5-14.5)
[2018-05-21 12:17] LABS: AMPHETAMINE QUAL UR NONE DETECTED (See below)
[2018-05-22 05:21] VITALS: BP 104/73
[2018-05-22 06:20] LABS: BASOPHIL % 0.8 % (0-2); PLATELET COUNT 291 x10^3mcL (130-400)
[2018-05-22 06:43] LABS: CALCIUM 8.6 mg/dL (8.5-10.1); CREATININE SERUM 1.5 mg/dL (0.7-1.3); POTASSIUM SERUM 4.3 mmol/L (3.5-5.1)
[2018-05-22 06:46] LABS: RED CELL DISTRIBUTION WIDTH 19.6 % (11.5-14.5)
[2018-05-22 09:00] VITALS: BP 132/92
[2018-05-22 13:03] VITALS: BP 109/72
[2018-05-22 17:30] VITALS: BP 117/79
[2018-05-22 21:01] VITALS: BP 114/75
[2018-05-23 05:48] VITALS: BP 110/78
[2018-05-23 06:20] LABS: BASOPHIL % 0.7 % (0-2); PLATELET COUNT 309 x10^3mcL (130-400)
[2018-05-23 06:29] LABS: RED CELL DISTRIBUTION WIDTH 19.3 % (11.5-14.5)
[2018-05-23 06:32] LABS: CALCIUM 8.6 mg/dL (8.5-10.1); CARBON DIOXIDE 29.7 mmol/L (21-32); CREATININE SERUM 1.6 mg/dL (0.7-1.3); POTASSIUM SERUM 4.3 mmol/L (3.5-5.1)
[2018-05-23 09:41] VITALS: BP 120/65
[2018-05-23 13:06] VITALS: BP 92/58
[2018-05-23 18:10] VITALS: BP 104/68
[2018-05-23 20:35] VITALS: BP 110/70
[2018-05-24 05:13] VITALS: BP 109/78; BP 137/77
[2018-05-24 06:25] VITALS: BP 109/78
[2018-05-24 06:28] LABS: BASOPHIL % 0.6 % (0-2); PLATELET COUNT 318 x10^3mcL (130-400); RED CELL DISTRIBUTION WIDTH 19.3 % (11.5-14.5)
[2018-05-24 06:42] LABS: CALCIUM 9.2 mg/dL (8.5-10.1); CARBON DIOXIDE 27.9 mmol/L (21-32); CREATININE SERUM 1.6 mg/dL (0.7-1.3); POTASSIUM SERUM 4.7 mmol/L (3.5-5.1)
[2018-05-24 09:17] VITALS: BP 115/72
[2018-05-24 12:36] VITALS: BP 90/58
[2018-05-24 17:47] VITALS: BP 100/74
[2018-05-24 20:21] VITALS: BP 111/78
[2018-05-25 05:20] VITALS: BP 106/70
[2018-05-25 06:40] LABS: CALCIUM 9.5 mg/dL (8.5-10.1); CARBON DIOXIDE 26.3 mmol/L (21-32); CREATININE SERUM 1.5 mg/dL (0.7-1.3); POTASSIUM SERUM 4.6 mmol/L (3.5-5.1)
[2018-05-25 06:45] LABS: BASOPHIL % 0.5 % (0-2); PLATELET COUNT 332 x10^3mcL (130-400)
[2018-05-25 06:54] LABS: RED CELL DISTRIBUTION WIDTH 20.1 % (11.5-14.5)
[2018-05-25 09:25] VITALS: BP 114/83
[2018-05-25 12:40] VITALS: BP 99/64
[2018-05-25 20:32] VITALS: BP 96/54
[2018-05-26 06:04] VITALS: BP 106/60
[2018-05-26 07:39] VITALS: BP 94/57
[2018-05-26 09:44] LABS: BASOPHIL % 0.8 % (0-2); PLATELET COUNT 330 x10^3mcL (130-400)
[2018-05-26 09:51] LABS: RED CELL DISTRIBUTION WIDTH 19.5 % (11.5-14.5)
[2018-05-26 09:54] LABS: CALCIUM 9.1 mg/dL (8.5-10.1); CARBON DIOXIDE 27.9 mmol/L (21-32); CREATININE SERUM 1.7 mg/dL (0.7-1.3); POTASSIUM SERUM 4.6 mmol/L (3.5-5.1)
[2018-05-26 11:03] VITALS: BP 94/57
[2018-05-26 17:33] VITALS: BP 111/72
[2018-05-26 20:32] VITALS: BP 100/59
[2018-05-27 05:33] VITALS: BP 115/73
[2018-05-27 06:28] LABS: MAGNESIUM 2.3 mg/dL (1.8-2.4); PHOSPHOROUS 5.2 mg/dL (2.5-4.9)
[2018-05-27 06:34] LABS: PLATELET COUNT 339 x10^3mcL (130-400)
[2018-05-27 06:37] LABS: CALCIUM 9.2 mg/dL (8.5-10.1); CARBON DIOXIDE 25.5 mmol/L (21-32); CREATININE SERUM 1.5 mg/dL (0.7-1.3); POTASSIUM SERUM 5.1 mmol/L (3.5-5.1)
[2018-05-27 06:49] LABS: RED CELL DISTRIBUTION WIDTH 19.5 % (11.5-14.5)
[2018-05-27 09:15] VITALS: BP 120/79
[2018-05-27 11:21] VITALS: BP 120/79
[2018-05-27] MEDS ORDERED: COUMADIN7.5 MG PO (11:49)
== END 2018-05-27 13:05 | disposition home or self-care (01) | DRG 194 ==
LOC: ED 21:07 → DU 23:36 → MU 05-25 14:35
PROVIDERS: Emergency Medicine; Internal Medicine; ADMIT Family Medicine
DX: I11.0 Hypertensive heart disease with heart failure (principal); N17.0 Acute kidney failure with tubular necrosis; E43 Unspecified severe protein-calorie malnutrition; E83.42 Hypomagnesemia; E11.8 Type 2 diabetes mellitus with unspecified complications; I27.20 Pulmonary hypertension, unspecified; I36.1 Nonrheumatic tricuspid (valve) insufficiency; I50.43 Acute on chronic combined systolic (congestive) and diastolic (congestive) heart failure; I34.0 Nonrheumatic mitral (valve) insufficiency; I51.3 Intracardiac thrombosis, not elsewhere classified; F15.10 Other stimulant abuse, uncomplicated; I42.7 Cardiomyopathy due to drug and external agent; E78.5 Hyperlipidemia, unspecified; I25.2 Old myocardial infarction; Z68.34 Body mass index [BMI] 34.0-34.9, adult; Z87.891 Personal history of nicotine dependence; Z79.01 Long term (current) use of anticoagulants; Z79.84 Long term (current) use of oral hypoglycemic drugs; Z91.14 Patient's other noncompliance with medication regimen; Z95.810 Presence of automatic (implantable) cardiac defibrillator
CPT/HCPCS: 82962; 83880; 84439; J1160; J1940; J3475; J7040; J7050; J7620; Q0092

== ENCOUNTER 2018-06-22 12:09 | Inpatient (IN) | payer OTHER ==
[~2018-06-22] VITALS: Ht 172.7 cm; Wt 98.9 kg
[2018-06-22 12:15] VITALS: Ht 172.7 cm; Wt 98.9 kg
--- NOTE | 2018-06-22 12:32 | NUR ---
PT PRESENTS TO ED WITH C/O SOB AND DYSPNEA X2 DAYS WORSENING TODAY. PT STS WHEN DYSPNEA WITH EXTERTION. PT BIB AMBULANCE. PER EMS PT WAS WALKING AROUND MOTEL WHEN HE BECAME VERY SOB AND CALL EMS. PER EMS PT O2 WOULD FLUCTUATE FROM 70'S TO 90'S AND WAS PUT ON 4L O2 VIA NC. PER EMS PT BLOOD SUGAR [address]. PT STS HE HAS HX OF CHF AND USUALLY TAKE LASIX FOR IT BUT STS HIS URINE OUTPUT HAS BEEN LESS. PT STS TODAY HE HAS HAD CHEST PRESSURE/PAIN. PT DENIES FEVER, COUGH, ABDOMINAL PAIN, OR HEAD PAIN. PT AAOX4, RESP LABORED & EQUAL, PT PUT ON FULL CM, SITTING UP ON GURNEY, WILL CONTINUE TO MONITOR.
[2018-06-22 13:01] LABS: BASOPHIL % 1.8 % (0-2); PLATELET COUNT 315 x10^3mcL (130-400)
[2018-06-22 13:03] LABS: RED CELL DISTRIBUTION WIDTH 20.8 % (11.5-14.5)
[2018-06-22 13:19] LABS: CALCIUM 9.4 mg/dL (8.5-10.1); CARBON DIOXIDE 27.3 mmol/L (21-32); CREATININE SERUM 1.7 mg/dL (0.7-1.3); POTASSIUM SERUM 4.3 mmol/L (3.5-5.1)
[2018-06-22 13:23] LABS: BILIRUBIN TOTAL 1.4 mg/dL (0.20-1.00); TOTAL PROTEIN, SERUM 7.8 g/dL (6.4-8.2)
[2018-06-22 13:27] LABS: ALBUMIN 3.2 g/dL (3.4-5.0)
--- NOTE | 2018-06-22 13:55 | NUR ---
PT AAOX4, RESP LABORED AND EQUAL, ON FULL AIR COMPRESSOR OPERATOR, NO ACUTE DISTRESS NOTED AT THIS TIME.
--- NOTE | 2018-06-22 14:04 | NUR ---
PT GIVEN URINAL PER REQUEST. PT ABLE TO STAND BY GURNEY, BUT EASILY BECAME TIRED WITH EXERTION OF STANDING. PT WAS ABLE TO PROVIDE URINE SAMPLE.
[2018-06-22 14:26] LABS: UA SPECIFIC GRAVITY 1.025 (1.005-1.035); microscopic required? YES; urine erythrocyte TRACE (NEGATIVE)
[2018-06-22 14:39] LABS: AMPHETAMINE QUAL UR POSITIVE (See below)
[2018-06-22] MEDS ORDERED: DIGOXIN0.125 M1 (14:55)
[2018-06-22] MEDS ORDERED: COUMADIN1 MG (14:55)
[2018-06-22] MEDS ORDERED: COREG3.125 MG (14:55)
--- NOTE | 2018-06-22 14:59 | NUR ---
LAB IN ROOM COLLECTING BLOOD FROM PT PT TOLERATING WELL WARM BLANKET GIVEN PT A/X4
--- NOTE | 2018-06-22 15:39 | NUR ---
RECEIVED REPORT FROM TRIPP MONTOYA IN ED. AWAITING PATIENT ARRIVAL TO FLOOR.
--- NOTE | 2018-06-22 15:43 | NUR ---
REPORT GIVEN TO JAN SUN TO ASSUME CARE OF PT.
[2018-06-22 16:34] LABS: MAGNESIUM 1.8 mg/dL (1.8-2.4); PHOSPHOROUS 4.7 mg/dL (2.5-4.9)
[2018-06-22 16:35] LABS: CHOLESTEROL/HDL RATIO 3.2
[2018-06-22 17:03] VITALS: BP 125/92
--- NOTE | 2018-06-22 17:15 | NUR ---
RECEVED PT FROM ER, PT ADMIT FOR CHF EXACERBATION, HYPOXIA, PT IS A/O X4, VERBAL RESPONSIVE, ABLE TO TELL WHAT HE NEEDS. LUNG SOUND DIM CHANTELLE, C/O SOB, PT IS ON 4L/MIN O2 VIA NC. PO2 98%, PT IS ON TELE 9, ST, C/O CHEST PAIN 5/10, BOWEL SOUND PRESENT ALL 4 QUADRANTS, NO DISTENTION, NO TENDER. PEDAL PULSE PRESENT BOTH FEET, +2 EDEMA BLE, IV AT RIGHT EJ, DRESSING INTACT, NO LEAKING, NO INFITRATION. ALL ADLS ASSIST, ALL NEED MET, CALL LIGHT IN REACH, WILL CONTINUE TO MONITOR.
--- NOTE | 2018-06-22 17:50 | NUR ---
IN TO CHECK PT BLOOD GLUCOSE. GLUCOSE READ 69. RECHECK CAME BACK 76, 84, AND 85. PT ASYMPTOMATIC.
--- NOTE | 2018-06-22 19:10 | NUR ---
REPORT GIVEN TO BRANDYN MONTOYA. PT RESTING COMFORTABLY IN BED. SALINE LOCK TO REJ IS PATENT AND INTACT. NO REDNESS OR PAIN. TELE # [address] PT DENIES CHEST PAIN. PT HAS TAKEN O2 OFF. NO C/O SOB AND NO DISTRESS NOTED. ALL QUESTIONS AND CONCERNS ADDRESSED.
--- NOTE | 2018-06-22 20:00 | NUR ---
PT A/A/O X4. DENIES DIZZINESS AND HEADACHE. BREATH SOUNDS CLEAR. BREATHING EVEN AND UNLABORED ON ROOM AIR. DENIES CHEST PAIN AND PRESSURE. BOWEL SOUNDS ACTIVE. NO C/O N/V AND ABDOMINAL PAIN. PITTING EDEMA NOTED ON BLE. PT C/O PAIN ON THE RIGHT TOES. DR. ESTRADA NOTIFIED. WAITING FOR ORDERS. PT REFUSED LAB DRAW AND BLOOD SUGAR CHECK. DR. FISH NOTIFIED. IV SALINE LOCK NOTED ON THE REJ. MADE PT COMFORTABLE. PLACED CALL LIGHT WITH IN REACH. WILL CONTINUE TO MONITOR.
[2018-06-22 20:08] VITALS: BP 14/83
--- NOTE | 2018-06-22 21:32 | NUR ---
PT C/O RIGHT TOE PAIN. GAVE PT TORADOL IVP. PT TOLERATED IT WELL. WILL CONTINUE TO MONITOR.
--- NOTE | 2018-06-23 01:34 | NUR ---
PT RESTING WITH EYES CLOSED. NO DISTRESS AND DISCOMFORT NOTED. WILL CONTINUE TO MONITOR.
[2018-06-23 06:28] VITALS: BP 128/87
[2018-06-23 07:05] LABS: CARBON DIOXIDE 22.2 mmol/L (21-32); CREATININE SERUM 1.7 mg/dL (0.7-1.3); MAGNESIUM 1.5 mg/dL (1.8-2.4); PHOSPHOROUS 4.4 mg/dL (2.5-4.9); POTASSIUM SERUM 3.7 mmol/L (3.5-5.1)
[2018-06-23 07:32] LABS: BASOPHIL % 2.7 % (0-2); PLATELET COUNT 274 x10^3mcL (130-400); RED CELL DISTRIBUTION WIDTH 20.6 % (11.5-14.5)
--- NOTE | 2018-06-23 07:50 | NUR ---
PT RECIEVED RESTING IN BED WITH NO APPARENT S/S OF PAIN OR DISTRESS. A/O X4, DENIES HANKS OR DIZZINESS. PT ON TELE, DENIES CP OR PRESSURE. PULSES PALPABLE AND BLE NOTED. LUNGS CTA. PT ON RA WITH NO SOB OR RESP DISTRESS NOTED. ABD SOFT AND NONDISTENDED BOWEL SOUNDS ACTIVE X4 WITH NO C/O ABD PAIN. VOIDS FREELY WITH NO C/O BURNING. MILD GENERALIZED WEAKNESS. SKIN WDI. SALINE LOCK AT REJ INTACT AND PATENT WITH NO REDNESS NOTED. SAFETY PRECAUTIONS IN PLACE. CALL LIGHT WITHIN REACH. WILL CONTINUE TO MONITOR.
[2018-06-23 09:18] VITALS: BP 129/87
--- NOTE | 2018-06-23 10:00 | NUR ---
AM MEDICATIONS GIVEN. PT TOLERATED WELL. RESPIRAITONS EQUAL AND UNLABROED. ON 4L O2 VIA NC, DENIES SOB AT THIS TIME. PT DENIES PAIN AT THIS TIME. BED IN LOW POSTIION. CALL LIGHT IN REACH. WILL CONTINUE TO MONITOR
[2018-06-23 12:19] VITALS: BP 132/80
--- NOTE | 2018-06-23 12:34 | NUR ---
PT RESTING IN BED WITH NO APPARENT SIGNS OF DISTRESS. RESPIRAITONS EQUAL AND UNLABORED. ON 3.5L O2 VIA NC, DENIES SOB. PT DENIES PAIN AT THIS TIME. BED IN LOW POSIOTION. CALL LIGHT IN REACH. WILL CONTINUE TO MONTIOR
--- NOTE | 2018-06-23 16:49 | NUR ---
DANTE'D CALL FROM SHELBY FROM [facility]. SHELBY UPDATED ON PT CURRENT STATUS AT THIS TIME. ALL QUESTIONS AND CONCERNS ADDRESSED. CALL BACK NUMBER LEFT. WILL CONTINUE TO MONTDANIELLE
[2018-06-23 18:01] VITALS: BP 100/53
--- NOTE | 2018-06-23 18:30 | NUR ---
PT RESTING COMFORTABLY IN BED. TELE MONITOR #9 CONNECTED TO PT. DENIES ANY CP OR PRESSURE AT THIS TIME. RR EQUAL AND UNLABORED, DENIES ANY SOB AT THIS TIME. PT ON 4 LPM O2 VIA NC. REJ IV INTACT AND PATENT WITH NO REDNESS OR INFLAMMATION NOTED. BED IN LOW POSITION. CALL LIGHT WITHIN REACH. WILL ENDORSE TO NIGHT RN.
--- NOTE | 2018-06-23 19:10 | NUR ---
RECEIVED PT IN BED ASLEEP BUT EASILY AROUSABLE. NO ACUTE RESPIRATORY DISTRESS NOTED.DENIES ANY PAIN AT THIS TIME. SALINE LOCKED TO REJ PATENT AND INTACT. INSTRUCTED PT TO HAVE 1.2L/DAY OF FLUIDS.BED IN LOWEST POSITION,CALL LIGHT WITHIN REACH. WILL CONTINUE TO MONITOR.
--- NOTE | 2018-06-23 19:10 | NUR ---
RECEIVED PT IN BED ASLEEP BUT EASILY AROUSABLE.NO ACUTE RESPIRATORY DISTRESS NOTED.02SAT CHECKED 95% @4L NC.RIJ PATENT AND INTACT. EDEMA TO BLE. FLUID RESTRICTION 1.2L/DAY. BED IN LOWEST POSITION,CALL LIGHT WITHIN REACH. WILL CONTINUE TO MONITOR.
--- NOTE | 2018-06-24 05:07 | NUR ---
PT REMAINED ASLEEP. NO DISTRESS NOTED. NO S/S OF PAIN.BED IN LOWEST POSITION,CALL LIGHT WITHIN REACH. WILL CONTINUE TO MONITOR.
[2018-06-24 05:30] VITALS: BP 129/85
--- NOTE | 2018-06-24 07:20 | NUR ---
CARE ENDORSED TO DAY NURSE MARTINEZ.
[2018-06-24 07:46] LABS: CALCIUM 8.5 mg/dL (8.5-10.1); CARBON DIOXIDE 23.1 mmol/L (21-32); CREATININE SERUM 1.8 mg/dL (0.7-1.3); MAGNESIUM 1.7 mg/dL (1.8-2.4); PHOSPHOROUS 4.9 mg/dL (2.5-4.9); POTASSIUM SERUM 3.8 mmol/L (3.5-5.1)
--- NOTE | 2018-06-24 07:50 | NUR ---
RC'D PT RESTING IN BED WITH NO APPARENT SIGNS OF DISTRESS. A/A/O/X4, SPEECH CLEAR AND APPROPRIATE. DENIES HANKS/DIZZINESS. ON TELE, DENIES CHEST PAIN/PRESSURE. PALP PULSES, EDEMA NOTED TO BLE. RESPIRATIONS EQUAL AND UNLABORED. LUNGS DIM IN BASES. ON 3.5L O2 VIA NC, DENIES SOB. ABDOMEN ROUND AND OBESE. ACTIVE BS. DENIES N/V. VOIDS FREELY. GENERALIZED WEAKNESS. SKIN W/D/I. PT DENIES PAIN AT THIS TIME. IV PATENT AND INTACT. BED IN LOW POSITION. CALL LIGHT IN REACH. WILL CONTINUE TO MONITOR
[2018-06-24 08:12] LABS: BASOPHIL % 0.8 % (0-2); PLATELET COUNT 259 x10^3mcL (130-400); RED CELL DISTRIBUTION WIDTH 20.5 % (11.5-14.5)
[2018-06-24 08:25] VITALS: BP 106/79
--- NOTE | 2018-06-24 08:35 | NUR ---
AM MEDICATIONS GIVEN. PT TOLERATED WELL. BP CURRENTLY 106/79 HR 97. WILL RECHECK BP SHORTLY TO GIVE OTHER AM MEDICATIONS FOR BP AND LASIX, DOLPHIN TRAINER AWARE. RESPIRATIONS EQUAL AND UNLABORED. ON 3.5 L O2 VIA NC, DENIES SOB. PT DENIES PAIN AT THIS TIME. BED IN LOW POSITION. CALL LIGHT IN REACH. WILL COTNINUE TO MONITOR
--- NOTE | 2018-06-24 11:25 | NUR ---
PT RESTING IN BED WITH NO APPARENT SIGNS OF DISTRESS. RESPIRATIONS EQUAL AND UNLABORED. ON 3.5L O2 VIA NC, DENIES SOB. PT DENIES PAIN AT THIS TIME. BED IN LOW POSITION. CALL LIGHT IN REACH. WILL COTNINUE TO MONITOR
--- NOTE | 2018-06-24 11:33 | NUR ---
DANTE'D CALL FROM ARIS FROM [facility]. UPDATED ON PTS CURRENT CONDITION AT THIS TIME. ALL QUESTIONS AND CONCERNS ADDRESSED AT THIS TIME.
[2018-06-24 13:25] VITALS: BP 150/86
[2018-06-24 16:15] VITALS: BP 111/81
--- NOTE | 2018-06-24 18:06 | NUR ---
PT RESTING IN BED WITH NO APPARENT SIGNS OF DISTRESS. ON TELE, DENIES CHEST PAIN/PERSSURE. RESPIRATIONS EQUAL AND UNLABORED. PT ON 3.5L O2 VIA NC, DENIES SOB AT THIS TIME. GENERALIZED WEAKNESS. NO ACUTE SKIN CHANGES NOTED AT THIS TIME. PT DENIES PAIN AT THIS TIME. IV PATENT AND INTACT. BED IN LOW POSITION. CALL LIGHT IN REACH. WILL ENDORSE TO PANTRY STEWARD/STEWARDESS RN
--- NOTE | 2018-06-24 18:24 | NUR ---
NOTIFIED BY TELE THAT PT HAD RUN OF VTACH. VITALS TAKEN AT THIS TIEM, BP 147/84 (105), HR 89. PT DENIES CHEST PAIN/PRESSURE/DIZZINESS. BED IN LOW POSITION. CALL LIGHT IN REACH. WILL CONTINUE TO MONITOR
--- NOTE | 2018-06-24 18:39 | NUR ---
DR SHIPLEY NOTIFIED REGARDING RUN OF VTACH, AWAITING NEW ORDERS AT THIS TIME
--- NOTE | 2018-06-24 19:00 | NUR ---
REPORT WAS SEEN FROM DAY SHIFT RN. PATIENT WAS SEEN AND IS RESTING COMFORTABLE IN BED. SLURRED SPEECH NOTED. PATIENT SEEMS LETHARGIC. EASILY AROUSED. A/OX4. NO C/O PAIN. BREATHING EVEN ON 3.5L NC. NO SOB OR RESP DISTRESS NOTED. EDUCATED PATIENT THAT WE WILL TRY TO WEAN HIM OFF THE O2. DENIES CHEST PAIN. IV TO THE REJ. PATENT AND INTACT. SALINE LOCK. NO REDNESS OR SWELLING NOTED. COMFORT AND SAFETY MEASURES MAINTAINED. BED IS LOCKED AND IN THE LOWEST POSITION. SIDE RAILS UP X2. CALL LIGHT IS WITHIN REACH. INSTRUCTED TO CALL FOR ASSISTANCE. WILL CONTINUE TO MONITOR.
[2018-06-24 22:37] VITALS: BP 115/79
[2018-06-24 23:20] VITALS: BP 98/54
--- NOTE | 2018-06-24 23:39 | NUR ---
PATIENT REQUESTING CRACKERS. CRACKERS GIVEN. PATIENT RESTING IN BED COMFORTABLY. NO DISTRESS NOTED. BREATHING EVEN ON 3L NC. CALL LIGHT IS WITHIN REACH. WILL CONTINUE TO MONITOR
--- NOTE | 2018-06-25 01:43 | NUR ---
PATIENT IS C/O 8/10 PAIN IN HIS RIGHT KNEE. PRN TORADOL WAS ADMINISTERED PRESCRIBED. EDUCATED PATIENT ON DIET ORDERED, CARDIAC DIET. PATIENT LIKES TO EAT SALTINE CRACKERS. PATIENT IS REQUESTING TUNA SANDWICH. WILL BRING HIM ONE. NO DISTRESS NOTED. BREATHING EVEN ON 3L NC. CALL LIGHT IS WITHIN REACH. WILL CONTINUE TO MONITOR.
[2018-06-25 05:10] VITALS: BP 137/78
--- NOTE | 2018-06-25 05:26 | NUR ---
PATIENT O2 SAT AT 90% ON 3L NC. INCREASED O2 TO 3.5L. NO DISTRESS NOTED. BREATHING EVEN AND UNLABORED. CALL LIGHT IS WITHIN REACH. WILL CONTINUE TO MONITOR
--- NOTE | 2018-06-25 05:31 | NUR ---
PATIENT SLEPT THHROUGHOUT THE NIGHT. NO ACUTE/SIGNIFCANT CHANGES NOTED. DENIES CHEST PAIN. BREATHING EVEN ON 3.5L NC. NO DISTRESS NOTED. IV TO THE REJ, SALINE LOCK. PATENT AND INTACT. NO REDNESS OR SWELLING NOTED. C/O PAIN X1 THROUGHOUT THE NIGHT. MEDICATED WITH PRN TORDAOL WITH GOOD RELIEF. COMFORT AND SAFETY MEASURES MAINTAINED. CALL LIGHT IS WITHIN REACH. WILL CONTINUE TO MONITOR AND ENDORSE CARE TO DAY SHIFT RN.
--- NOTE | 2018-06-25 06:25 | NUR ---
PATIENT IS RESQUESITN BREATHING TREATMENT. NONE ORDERED AT THIS TIME. EDUCATED PATIENT TO KEEP HOB UP. ON 3.5L NC. DR ADAIR MADE AWARE. SHE ALIS STILL WILL PUT IN ORDERS. WILL CONTINUE TO MONITOR AND ENDORSE CARE TO DAY SHIFT RN.
--- NOTE | 2018-06-25 06:58 | NUR ---
PATIENT RECEIVING BREATHING TREATMENT AT BEDSIDE.
[2018-06-25 07:10] VITALS: BP 137/78
[2018-06-25 07:30] LABS: CALCIUM 8.4 mg/dL (8.5-10.1); CARBON DIOXIDE 26.9 mmol/L (21-32); CREATININE SERUM 1.8 mg/dL (0.7-1.3); POTASSIUM SERUM 4.1 mmol/L (3.5-5.1)
--- NOTE | 2018-06-25 07:40 | NUR ---
PT AWAKE ALERT AND ORIENTED DURING BEDSIDE REPORT WITH GIFT OFFICER NURSE. PT DENIED PAIN AT THIS TIME, RT TREATMENT IN PROGRESS, PT IN NAD, WILL CONTINUE TO MONITOR.
[2018-06-25 08:47] LABS: BASOPHIL % 0.3 % (0-2); PLATELET COUNT 259 x10^3mcL (130-400); RED CELL DISTRIBUTION WIDTH 20.9 % (11.5-14.5)
[2018-06-25 14:40] VITALS: BP 101/65
[2018-06-25 17:14] VITALS: BP 98/65
--- NOTE | 2018-06-25 19:40 | NUR ---
REPORT GIVEN TO EDI ARCHITECT NURSE AT THE BEDSIDE, CARE ENDORSED
--- NOTE | 2018-06-25 20:00 | NUR ---
RECEIVED PT IN BED, ALERT AND ORIENTED. ABLE TO VERBALIZE NEEDS. DENIES HEADACHE/DIZZINESS. RESP. EVEN AND UNLABORED. 02 AT 3L/MIN VIA NC, SAT. WELL. DENIES SOB. NO ACUTE DISTRESS NOTED. SR ON THE MONITOR, DENIES CP OR ANY DISCOMFORT AT THIS TIME. HL TO REJ, INTACT AND PATENT. VOIDING FREELY. EDEMA TO BLE, ALL PULSES PALPABLE. AMBULATORY. CALL LIGHT WITHIN REACH. WILL CONTINUE TO MONITOR.
[2018-06-25 20:25] VITALS: BP 95/71
--- NOTE | 2018-06-26 01:05 | NUR ---
NO COMPLAINTS NOTED AT THIS TIME.RESTING QUIETLY WITH EYES CLOSED.EASILY AROUSABLE. RESP. EVEN AND UNLABORED. [address], NO ACUTE DISTRESS NOTED.CALL LIGHT WITHIN WITHIN REACH. WILL CONTINUE TO MONITOR.
[2018-06-26 05:18] VITALS: BP 122/76
--- NOTE | 2018-06-26 05:58 | NUR ---
NO COMPLAINTS NOTED. SLEPT MOST OF THE NIGHT. DENIES PAIN OR ANY DISCOMFORT. [address], RAVI. WELL. NO ACUTE DISTRESS NOTED. KEPT COMFORTABLE. AFEBRILE AND VITAL SIGNS STABLE. WILL CONTINUE TO MONITOR.
[2018-06-26 07:29] LABS: BASOPHIL % 0.8 % (0-2); PLATELET COUNT 269 x10^3mcL (130-400)
--- NOTE | 2018-06-26 07:30 | NUR ---
PT ENDORSE TO ME THIS MORNING. AA/O X4, BREATHING EVEN AND UNLABORED ON 2.5 L NC, NO ACUTE RESP DISTRESS OR SOB NOTED. TELE 9 SR NOTED / HR 88, DENIES ANY CHEST PAIN OR PRESSURE. BLE 2+ NOTED. VOIDS FREELY. AMB. KNOWS TO CALL FOR ASSIST. REJ INTACT AND PATENT/HEPLOCKED. CALL LIGHT IN REACH. BED IN LOW POSITION. WILL CONTINE PLAN OF CARE.
[2018-06-26 07:31] LABS: CALCIUM 8.9 mg/dL (8.5-10.1); CARBON DIOXIDE 29.6 mmol/L (21-32); CREATININE SERUM 1.8 mg/dL (0.7-1.3); MAGNESIUM 1.9 mg/dL (1.8-2.4); POTASSIUM SERUM 4.2 mmol/L (3.5-5.1)
[2018-06-26 07:42] LABS: RED CELL DISTRIBUTION WIDTH 20.7 % (11.5-14.5)
[2018-06-26 08:28] VITALS: BP 129/76
--- NOTE | 2018-06-26 08:33 | NUR ---
PT ASKING FOR SALTINE CRACKERS, EXPLAINED TO PT PER DR. PEREZ IS ON [facility] DIET, PT UPSET AND STATED HE WILL "F REFUSE EVERYTHING" DR. LANZA AWARE. WILL CONTINUE TO MONITOR.
[2018-06-26 13:02] VITALS: BP 120/75
--- NOTE | 2018-06-26 15:15 | NUR ---
PER MALCOLM NAVARRO 02 AT 1.5 TOLERATING WELL. WILL CONTINUE TO MONITOR.
[2018-06-26 17:20] VITALS: BP 103/70
[2018-06-26 17:33] VITALS: BP 105/70
--- NOTE | 2018-06-26 17:33 | NUR ---
TELE CALLED PT HAD 4 BEATS VTACH, VS STABLE, DENIES ANY CHEST PAIN OR PRESSURE. MALCOLM NAVARRO MADE AWARE.
--- NOTE | 2018-06-26 18:33 | NUR ---
PT SITTING UP IN BED FINISHING UP DINNER. NO ACUTE CHANGES AT THIS TIME. NO ACUTE RESP DISTRESS/ REMAINS ON 1.5 NC TOLERATING WELL. DENIES ANY CP OR PRESSURE, HR 88 SR. REJ INTACT AND PATENT. CALL LIGHT IN REACH/ BED IN LOW POSITION. WILL ENDORSE TO INCOMING RN.
[2018-06-26 19:44] VITALS: BP 108/69
--- NOTE | 2018-06-26 19:57 | NUR ---
RECEIVED PT IN BED, ALERT AND ORIENTED. SLEEPY, EASILY AROUSABLE.DENIES HEADACHE/DIZZINESS. RESP. EVEN AND UNLABORED , 02 AT 1.5L/MIN VIA NC, SAT. 97%. DENIES SOB . NO ACUTE DISTRESS NOTED. SR ON THE MONITOR AT THIS TIME, DENIES CP OR PRESSURE. HL TO REJ, PATENT. VOIDING FREELY VIA URINAL. CALL LIGHT WITHIN REACH. WILL CONTINUE TO MONITOR.
--- NOTE | 2018-06-27 01:34 | NUR ---
NO COMPLAINTS NOTED AT THIS TIME. RESTING QUIETLY IN BED WITH EYES CLOSED. APPEARS ASLEEP, EASILY AROUSABLE. RESP. EVEN AND UNLABORED. NO ACUTE DISTRESS NOTED. WILL CONTINUE TO MONITOR.
[2018-06-27 05:59] VITALS: BP 101/65
--- NOTE | 2018-06-27 06:11 | NUR ---
SLEPT WELL. NO COMPLAINTS NOTED AT THIS TIME. AFEBRILE AND VITAL SIGNS STABLE. RESP. EVEN AND UNLABORED. 02 AT 1.5L/MIN VIA NC, RAVI. WELL. DENIES CHEST PAIN OR ANY DISCOMFORT. KEPT COMFORTABLE. WILL CONTINUE TO MONITOR.
[2018-06-27 06:39] LABS: PLATELET COUNT 296 x10^3mcL (130-400)
[2018-06-27 06:42] LABS: CALCIUM 9.5 mg/dL (8.5-10.1); CARBON DIOXIDE 33.4 mmol/L (21-32); POTASSIUM SERUM 4.4 mmol/L (3.5-5.1)
[2018-06-27 06:43] LABS: RED CELL DISTRIBUTION WIDTH 20.8 % (11.5-14.5)
--- NOTE | 2018-06-27 07:06 | NUR ---
REPORT TAKEN FROM CHLOROBUTADIENE SCRUBBER OPERATOR NURSE, PT RESTING AT THIS TIME, CHEST RISE AND FALL OBSERVED, NAD DISTRESS OBSERVED, WILL CONTINUE TO MONITOR.
[2018-06-27 09:08] VITALS: BP 107/68
[2018-06-27 13:10] VITALS: BP 92/64
[2018-06-27 13:49] VITALS: BP 103/65
[2018-06-27 17:26] VITALS: BP 99/68
--- NOTE | 2018-06-27 19:22 | NUR ---
REPORT GIVEN TO SCHOOL INSPECTOR NURSE AT THE BEDSIDE, PT SLEEPING AT THIS TIME, BUT WOKE TO MEET SCHOOL INSPECTOR NURSE. PT TOLERATED TREATMENT WELL, ROUNDS COMPLETED, NO NEW EVENTS REPORTED, CARE ENDORSED.
--- NOTE | 2018-06-27 19:30 | NUR ---
REC'D PT FROM DAY NURSE. PT RESTING IN BED WITH EYES CLOSED. AWAKENS EASILY BUT DROWSY. WHISPERED SPEECH. AAOX4, SPEECH CLEAR, FOLLOWS COMMANDS. TELE 9. DENIES CP, DIZZINESS, OR PALPITATIONS. DENIES RESP DISTRESS OR SOB. BREATHING EVEN/UNLABORED ON RA, SPO2 93%. ABD SOFT/ROUND. DENIES ABD PAIN, TENDERNESS, OR N/V. VOIDING FREELY. AMBULATORY. SKIN INTACT. IV TO REJ FLUSHED AND PATENT, SITE WNL. CALL LIGHT WITHIN REACH, BED AT LOWEST POSITION. WILL CONTINUE TO MONITOR.
[2018-06-27 21:44] VITALS: BP 101/59
--- NOTE | 2018-06-27 22:34 | NUR ---
BS 192. PT REFUSED INSULIN. EDUCATION PROVIDED REGARDING TAKING INSULIN BASED ON SLIDING SCALE TO KEEP BLOOD SUGAR AT AN APPROPRIATE LEVEL. PT STILL REFUSED.
--- NOTE | 2018-06-28 02:13 | NUR ---
PT RESTING IN BED WITH EYES CLOSED. LAYING ON L SIDE. NO SIGNS OF DISTRESS NOTED. BREATHING EVEN/UNLABORED ON RA. CALL LIGHT WITHIN REACH, BED AT LOWEST POSITION. WILL CONTINUE TO MONITOR.
--- NOTE | 2018-06-28 04:45 | NUR ---
NOTIFIED BY BUSINESS RELATIONSHIP MANAGER PT HAD A 4-BEAT RUN OF VTACH. LAYING IN BED. DENIES ANY CP, PALPITATIONS OR SOB. ASYMPTOMATIC. TELE CURRENTLY READING NSR WITH DEPRESSED T WAVE. VSS. BP HR 78. LOOKING INTO THE CHART, PT HAS HAD A FEW EPISODES OF NONSUSTANING VTACH. DR. ESTRADA MADE AWARE VIA [employer].
[2018-06-28 05:19] VITALS: BP 104/73
--- NOTE | 2018-06-28 06:10 | NUR ---
PT RESTING IN BED WITH EYES CLOSED. AROUSES EASILY. BREATHING EVEN/UNLABORED ON RA. DENIES PAIN OR DISCOMFORT. NO SIGNIFICANT CHANGES DURING SHIFT. SANDWICH GIVEN PER REQUEST. BS 116. CALL LIGHT WITHIN REACH, BED AT LOWEST POSITION. WILL ENDORSE TO DAY NURSE.
[2018-06-28 06:13] LABS: BASOPHIL % 1.4 % (0-2); PLATELET COUNT 299 x10^3mcL (130-400)
[2018-06-28 06:26] LABS: CALCIUM 9.7 mg/dL (8.5-10.1); CARBON DIOXIDE 25.9 mmol/L (21-32); CREATININE SERUM 1.8 mg/dL (0.7-1.3); POTASSIUM SERUM 4.6 mmol/L (3.5-5.1)
[2018-06-28 08:38] VITALS: BP 104/73
[2018-06-28 09:14] VITALS: BP 106/67
[2018-06-28 12:22] VITALS: BP 104/67
--- NOTE | 2018-06-28 15:08 | NUR ---
HE HAD A SHORT RUN OF V TACH, RYAN FOWLER IS AWARE. HE IS ASYMPTOMATIC.
[2018-06-28 17:45] VITALS: BP 101/61
--- NOTE | 2018-06-28 17:51 | NUR ---
AAO TIMES 4. PLEASANT, COOPERATIVE. IV SITE CDI. TELE # 9 SR. NO C/O PAIN. NO SOB. VS'S STABLE. RYAN FOWLER AWARE OF HIS INR LEVEL OF 1.8, HE WAS GIVEN 12 MG PO COUMADIN TODAY. VS'S STABLE.
--- NOTE | 2018-06-28 19:30 | NUR ---
RECIEVED PATIENT AT START OF SHIFT SLEEPING, EYES CLOSED, BREATHS EVEN. IV SALINE LOCKED. TELE NUMBER 9, NSR. BED LOCKED AND IN LOWEST POSITION. CALL LIGHT AND BEDSIDE TABLE WITHIN REACH. WILL CONTINUE TO MONITOR.
[2018-06-28 20:53] VITALS: BP 109/46
--- NOTE | 2018-06-29 02:00 | NUR ---
YUMIKO GIVEN SUGAR FREE PUDDING UPON REQUEST.
[2018-06-29 05:52] VITALS: BP 101/70
--- NOTE | 2018-06-29 06:03 | NUR ---
PATIENT REFUSED INSULIN AFTER BLOOD GLUCOSE OF 174.
[2018-06-29 06:08] LABS: BASOPHIL % 0.8 % (0-2); PLATELET COUNT 281 x10^3mcL (130-400)
[2018-06-29 06:17] LABS: CALCIUM 9.4 mg/dL (8.5-10.1); CARBON DIOXIDE 26.7 mmol/L (21-32); CREATININE SERUM 1.9 mg/dL (0.7-1.3)
[2018-06-29 06:21] LABS: RED CELL DISTRIBUTION WIDTH 19.3 % (11.5-14.5)
--- NOTE | 2018-06-29 06:55 | NUR ---
NO FURTHER SIGNIFICANT EVENTS THIS SHIFT. IV REMAINS PATENT AND SALINE LOCKED. BED LOCKED AND IN LOWEST POSITIN. CALL LIGHT AND BEDSIDE TABLE WITHIN REACH. WILL ENDORSE CARE TO MORNING NURSE.
--- NOTE | 2018-06-29 07:20 | NUR ---
RECIEVED PT FROM NIGHT NURSE. PT IS LAYING DOWN IN BED RESTING WITH EYES CLOSED. RESPIRATIONS EVEN AND UNLABORED ON ROOM AIR. IV SITE IS PATENT WITH NO SIGNS OF ERYTHEMA OR SWELLING. BED IN LOWEST POSITION. CALL LIGHT WITHIN REACH. WILL CONTINUE TO MONITOR.
[2018-06-29 09:31] VITALS: BP 96/59
--- NOTE | 2018-06-29 12:45 | NUR ---
Initial Nutrition Assessment- 256T/B TANNER OLSON MR Dx: SOB, CP, CHF exacerbation PMHx: Diastolic and Systolic Congestive Heart Failure s/p AICD, Methamphetamine Abuse, Medical Non-Compliance, Hypertension, Diabetes PSHx: AICD placement Labs: NA 133L, BUN 48H, CREAT 1.9H, Meds: Aldactone, D50%, Humulin, Lasix, Lipitor, Coumadin, zofran Diet: Cardiac PO Intake: 100% (06/28) Ht: 172.72 cm (68") Wt: 98.8 kg (217#) BMI: 33.1 kg/m2 IBW: 154# (70 kg) %IBW: 140 UBW: unable to access Age: 52/M Food Allergies: NKFA Skin: Intact Keven: 20 Edema: trace BLE GI: Last BM 06/26/18 Per H&P, Patient is a 52 year old male with a PMH of HTN, CAD, CHF, DM, AICD, multiple MIs comes in for SOB and chest pain. Patient is homeless and was laying down having trouble breathing. He would wake up at night gasping for air. He decided to come in now because it was "getting really bad". RDN visit (06/29): pt was sleeping. Per RN Siobhan, pt does not have any N/V/D/C at this time and has good appetite. Per progress note (06/28), pt is a meth abuser. Problem with: N: no V: no D: no C: no Problems with: Chewing/Swallowing: no Current appetite: good Recent wt change: unable to access (pt sleeping) Vitamin/Supplement use: unable to access (pt sleeping) Special diet at home: unable to access (pt sleeping) Physical activity: unable to access (pt sleeping) Education: Diet education was inappropriate at this time as patient was sleeping. Education will be provided during a follow up visit. Estimated Nutritional Needs Based on ideal body weight 70 kg Energy: 3378-7158 kcal/d (25-30 kcal/kg-maintenance) Protein: 70-84 g/d (1.0-1.2 g/kg)-maintenance and preservation of lean body mass Fluid: 1719-0107 ml/d (1 ml/kcal-fluid balance) or per doctor Nutrition Diagnosis 1. Impaired nutrient utilization related to drug use as evidenced by pt being a meth abuser per MD notes. Intervention 1. Continue cardiac diet at this time. Monitor/Evaluate Goal: PO intake at least 75% of estimated needs Monitor: PO intake, Labs, GI function F/U in 7 days as low risk 07/06
--- NOTE | 2018-06-29 12:45 | NUR ---
1. Continue cardiac diet at this time.
[2018-06-29 13:40] VITALS: BP 114/72
--- NOTE | 2018-06-29 14:33 | NUR ---
PT IS LAYING DOWN IN BED RESTING. RESPIRATIONS EVEN AND UNLABORED ON ROOM AIR. PT LOOKS TO BE IN NO ACUTE DISTRESS AT THIS TIME. IV SITE PATENT WITH NO SIGNS OF ERYTHEMA OR SWELING, IV H/L. BED IN LOWEST POSITION. CALL LIGHT WITHIN REACH. WILL CONTINUE TO MONITOR.
[2018-06-29 16:04] VITALS: BP 96/54
--- NOTE | 2018-06-29 19:01 | NUR ---
PT IS LAYING DOWN IN BED WITH EYES CLOSED. RESPIRATIONS EVEN AND UNLABORED ON ROOM AIR. PT LOOKS TO BE IN NO ACUTE DISTRESS AT THIS TIME. IV SITE TO RIGHT JUGLAR IS PATENT WITH NO SIGNS OF ERYTHEMA OR SWELLING AND IV H/L. BED IN LOWEST POSITION. CALL LIGHT WITHIN REACH. WILL ENDORSE TO ONCOMING SHIFT.
--- NOTE | 2018-06-29 19:26 | NUR ---
RECEIVED PT FROM PREVIOUS SHIFT NURSE. PT AOX4. DENIES HANKS/DIZZINESS. TELE #9, PACED ON DEMAND, HR 91. DENIES CP/PRESSURE. DENIES SOB/DIFFICULTY BREATHING, ON RA. IV TO R. EJ, INTACT AND PATENT. BED IN LOWEST POSITION. CALL LIGHT WITHIN REACH. WILL CONTINUE TO MONITOR.
[2018-06-29 19:45] VITALS: BP 86/54
--- NOTE | 2018-06-30 01:48 | NUR ---
PT RESTING IN BED. RR EVEN AND UNLABORED. IN NO ACUTE DISTRESS. CALL LIGHT WITHIN REACH. BED IN LOWEST POSITION. WILL CONTINUE TO MONITOR.
[2018-06-30 05:39] VITALS: BP 106/76
[2018-06-30 06:30] LABS: BASOPHIL % 0.4 % (0-2); PLATELET COUNT 285 x10^3mcL (130-400); RED CELL DISTRIBUTION WIDTH 19.7 % (11.5-14.5)
[2018-06-30 06:57] LABS: CALCIUM 9.5 mg/dL (8.5-10.1); CARBON DIOXIDE 25.8 mmol/L (21-32); CREATININE SERUM 1.6 mg/dL (0.7-1.3); POTASSIUM SERUM 4.8 mmol/L (3.5-5.1)
--- NOTE | 2018-06-30 07:20 | NUR ---
RECIEVED PT FROM NIGHT NURSE. PT IS LAYING DOWN IN BED RESTING WITH EYES CLOSED, PT IS EASILY AROUSABLE. PT LOOKS TO BE IN NO ACUTE DISTRESS AND DENIES ANY PAIN AT THIS TIME. IV STIE PATENT WITH NO SIGNS OF ERYTHEMA OR SWELLING, IV H/L. RESPIRATIONS EVEN AND UNLABORED ON ROOM AIR WITH CLEAR LUNG SOUNDS BILATERALLY. PT DENIES ANY WEAKNESS AT THIS TIME. BED IN LOWEST POSITION. CALL LIGHT WITHIN REACH. WILL CONTINUE TO MONITOR.
[2018-06-30 09:15] VITALS: BP 122/74
[2018-06-30] MEDS ORDERED: ATORVASTATIN CA40 M1 PO (10:02)
[2018-06-30] MEDS ORDERED: COR6 PO (10:02)
[2018-06-30] MEDS ORDERED: DIGOXIN0.125 M1 PO (10:02)
[2018-06-30] MEDS ORDERED: COUMADIN7.5 MG PO (10:02)
[2018-06-30] MEDS ORDERED: ALDACTONE25 MG PO (10:03)
[2018-06-30] MEDS ORDERED: GABAPENTIN400 M1 PO (10:03)
[2018-06-30] MEDS ORDERED: GOOD SENSE ASPI81 M3 PO (10:03)
[2018-06-30] MEDS ORDERED: ENALAPRIL5 M1 PO (10:03)
--- NOTE | 2018-06-30 11:15 | NUR ---
SPOKE WITH PT ABOUT DISCHARGE STATUS. PT ASKED IF WILL NEED TRANSPORTATION WITH DISCHARGE. PT STATED WILL NEED ASSISTANCE WITH TRANSPORTATION. PT REQUSTING TO STAY UNTIL DINNER TODAY AND THEN WOULD LIKE TO LEAVE.
[2018-06-30 12:30] VITALS: BP 88/55
[2018-06-30 17:08] VITALS: BP 98/60
--- NOTE | 2018-06-30 18:03 | NUR ---
PT IS LAYING DOWN IN BED RESTING. PT CHANGED INTO PERSONAL CLOTHES AND STATED ALL BELONGINGS ARE GATHERED. PT STATES IS READY FOR CAB WHICH IS SCHEDULED TO PICK HIM UP AT 1830 AND IS SET TO DROP HIM OFF AT [facility]. PT LOOKS TO BE IN NO ACUTE DISTRESS AT THIS TIME. NO IV SITE, BOARD CERTIFIED BEHAVIORAL ANALYST RYAN AWARE. BED IN LOWEST POSITION. CALL LIGHT WITHIN REACH. WILL CONTINUE TO MONITOR.
--- NOTE | 2018-06-30 18:25 | NUR ---
PT AWAKE, ALERT AND ORIENTED AT TIME OF DISCHARGE. PT LOOKS TO BE IN NO ACUTE DISTRESS AND DENIES ANY PAIN AT TIME OF DISCHARGE. PT DISCHARGED TO [facility]. PT BROUGHT TO LOBBY VIA WHEELCHAIR ACCOMPANIED BY [employer] OPENER, BELONGINGS IN HAND. CAB VOUCHER FOR PT SCHEDULED FOR 1829. EDUCATION AND PRESCRIPTIONS PROVIDED TO PT AND PT VERBALIZED UNDERSTANDING. PT INFORMED OF FOLLOW UP APPOINTMENT AND TOLD IF UNABLE TO MAKE APPOINTMENT TO RESCHEDULE, PT VERBALIZED UNDERSTANDING. IV REMOVED EARLIER IN THE DAY, IV CATHETER FULLY INTACT. TELE MONTIOR REMOVED AND RETURNED TO TELE STATION. ALL QUESTIONS ADDRESSED.
== END 2018-06-30 18:32 | disposition home or self-care (01) | DRG 194 ==
LOC: ED 12:09 → DU 14:36
PROVIDERS: Emergency Medicine; Internal Medicine; ADMIT Family Medicine
DX: I11.0 Hypertensive heart disease with heart failure (principal); N17.0 Acute kidney failure with tubular necrosis; I50.43 Acute on chronic combined systolic (congestive) and diastolic (congestive) heart failure; I25.10 Atherosclerotic heart disease of native coronary artery without angina pectoris; E11.65 Type 2 diabetes mellitus with hyperglycemia; E44.0 Moderate protein-calorie malnutrition; F15.10 Other stimulant abuse, uncomplicated; I34.0 Nonrheumatic mitral (valve) insufficiency; I36.1 Nonrheumatic tricuspid (valve) insufficiency; R80.9 Proteinuria, unspecified; E78.00 Pure hypercholesterolemia, unspecified; Z59.0 Homelessness; I25.2 Old myocardial infarction; Z68.32 Body mass index [BMI] 32.0-32.9, adult; Z79.84 Long term (current) use of oral hypoglycemic drugs; Z95.810 Presence of automatic (implantable) cardiac defibrillator; F17.290 Nicotine dependence, other tobacco product, uncomplicated
CPT/HCPCS: 36600; 82962; 83880; 94150; J1885; J1940; J3475; J7040; J7620; Q0092

== ENCOUNTER 2018-09-26 15:12 | Inpatient (IN) | payer OTHER ==
[~2018-09-26] VITALS: Ht 172.7 cm; Wt 107.1 kg
[~2018-09-26 15:12] MED LIST changes: +COREG3.125 MG; +COUMADIN1 MG; +DIGOXIN0.125 M1
[2018-09-26 16:04] LABS: CALCIUM 8.8 mg/dL (8.5-10.1); CARBON DIOXIDE 27.4 mmol/L (21-32); CREATININE SERUM 1.5 mg/dL (0.7-1.3); POTASSIUM SERUM 4.3 mmol/L (3.5-5.1)
[2018-09-26 16:09] LABS: BILIRUBIN TOTAL 0.7 mg/dL (0.20-1.00); TOTAL PROTEIN, SERUM 6.8 g/dL (6.4-8.2)
--- NOTE | 2018-09-26 16:22 | NUR ---
PT. ARRIVED TO ER C/O CHEST PAIN, 07/23, DESCRIBED ACHEY, CONTINUOUS, NON-RADIATING X 2 DAYS, DENIES ANY N/V/D, PT. STATES HE HAS BEEN NON-COMPLIANT WITH HIS MEDICATIONS FOR THE PAST TWO WEEKS, EKG WAS OBTAINED, LAB AT BEDSIDE, PLACED ON CARDIAC MONTITOR, PT. CURRENTLY SITTING UP, ON CELL PHONE, NO ACUTE DISTRESS NOTED, WILL MONITOR.
[2018-09-26 16:42] LABS: BASOPHIL % 0.5 % (0-2); PLATELET COUNT 233 x10^3mcL (130-400); RED CELL DISTRIBUTION WIDTH 18.3 % (11.5-14.5)
--- NOTE | 2018-09-26 18:01 | NUR ---
PT. 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
--- NOTE | 2018-09-26 18:20 | NUR ---
REPORT GIVEN TO LUANNE MONTOYA RESUMING CARE OF PT IN TELE FLOOR
[2018-09-26 18:23] LABS: CHOLESTEROL/HDL RATIO 2.6
--- NOTE | 2018-09-26 18:40 | NUR ---
RECEIVED PT FROM ED VIA GUERNEY, CAME IN DUE TO CHEST PAIN X2 DAYS. AAOX4. DENIES HEADACHE/DIZZINESS. NO SOB NOTED. LUNG SOUNDS CTA, O2 SAT=97%. DENIES CHEST PAIN/PRESSURE AT THIS TIME, SINUS TACHYCARDIA ON THE MONITOR. W/ LEFT CHEST AICD. DENIES ABDOMINAL DISCOMFORT. BOWEL SOUNDS ACTIVE. IV SITE ON THE RAC PATENT AND INTACT. SIDE RAILS UP2X. CALL LIGHT ON REACH. ENDORSED TO PRIMARY NURSE LUANNE FOR CONTINUITY OF CARE
--- NOTE | 2018-09-26 18:40 | NUR ---
PT TRANSPORTED TO TELE FLOOR VIA GURNEY ON PORTABLE CM IN NO DISTRESS JEFFERY STROUD RN IN TELE FLOOR RESUMED CARE OF PT
[2018-09-26 18:46] VITALS: BP 129/86
[2018-09-26 18:53] VITALS: Ht 172.7 cm; Wt 107.1 kg
--- NOTE | 2018-09-26 19:20 | NUR ---
RECEIVED PT FROM PREVIOUS SHIFT NURSE. PT AOX4, DENIES HANKS/DIZZINESS. ON TELE #4, READING ST WITH A DEPRESSED T WAVE, HR 115. DENIES CP/PRESSURE. DENIES SOB/DIFFICULTY BREATHING, ON RA. IV TO RAC, INTACT AND PATENT. BED IN LOWEST POSITION. CALL LIGHT WITHIN REACH. WILL CONTINUE TO MONITOR.
[2018-09-26 20:33] VITALS: BP 129/81
--- NOTE | 2018-09-27 03:42 | NUR ---
PT RESTING IN BED. RR EVEN AND UNLABORED. IN NO ACUTE DISTRESS. CALL LIGHT WITHIN REACH. BED IN LOWEST POSITION. WILL CONTINUE TO MONITOR.
[2018-09-27 05:27] VITALS: BP 123/90
[2018-09-27 06:13] LABS: BASOPHIL % 0.6 % (0-2); PLATELET COUNT 256 x10^3mcL (130-400)
[2018-09-27 06:19] LABS: CALCIUM 8.7 mg/dL (8.5-10.1); CARBON DIOXIDE 27.3 mmol/L (21-32); CREATININE SERUM 1.4 mg/dL (0.7-1.3); POTASSIUM SERUM 4.2 mmol/L (3.5-5.1)
[2018-09-27 06:45] LABS: RED CELL DISTRIBUTION WIDTH 18.2 % (11.5-14.5)
--- NOTE | 2018-09-27 07:04 | NUR ---
RECEIVED PT FROM FRENCH BINDING FOLDER NURSE. PT IN BED SLEEPING, AROUSABLE, RESP E/U ON 2L NC. NO SIGNS OF ACUTE DISTRESS NOTED. ON TELE [address] W/ DEPRESSED T WAVE, HR: 102. SALINE LOCKED TO RAC W/ NO ERYTHEMA OR EDEMA. BED IN LOWEST POSTION AND CALL LIGHT WITHIN REACH. WILL CONTINUE TO MONITOR.
[2018-09-27 07:47] LABS: UA SPECIFIC GRAVITY >=1.030 (1.005-1.035); microscopic required? YES; urine erythrocyte TRACE (NEGATIVE)
[2018-09-27 08:00] LABS: AMPHETAMINE QUAL UR POSITIVE (See below)
[2018-09-27 08:44] VITALS: BP 135/86
--- NOTE | 2018-09-27 11:05 | NUR ---
CANCELLATION REQUESTED FOR ECHOCARDIOGRAM
--- NOTE | 2018-09-27 12:15 | NUR ---
PT SITTING UPRIGHT IN BED, AOX4, RESP E/U ON RA. DENIES CHEST PAIN OR SOB AT THIS TIME. NO ACUTE DISTRESS NOTED. BED IN LOWEST POSTION AND CALL LIGHT WITHIN REACH. WILL CONTINUE TO MONITOR.
[2018-09-27 12:24] VITALS: BP 108/81
[2018-09-27 17:33] VITALS: BP 124/96
--- NOTE | 2018-09-27 17:41 | NUR ---
PT IN BED SLEEPING, AROUSABLE, RESP E/ U ON 2L NC. NO SIGNS OF ACUTE DISTRESS NOTED. SALINE LOCKED TO RAC W/ NO ERYTHEMA OR EDEMA. BED IN LOWEST POSITION AND CALL LIGHT WITHIN REACH. WILL ENDORSE TO ONCOMING NURSE.
--- NOTE | 2018-09-27 19:10 | NUR ---
RECEIVED PT FROM PREVIOUS SHIFT NURSE. PT AOX4, DENIES HANKS/DIZZINESS. TELE #4, ST WITH DEPRESSED T WAVE. DENIES CP/PRESSURE. DENIES SOB/DIFFICULTY BREATHING, ON RA. IV TO RAC, INTACT AND PATENT. BED IN LOWEST POSITION. CALL LIGHT WITHIN REACH. WILL CONTINUE TO MONITOR.
[2018-09-27 20:32] VITALS: BP 121/85
--- NOTE | 2018-09-28 03:00 | NUR ---
PT RESTING IN BED. RR EVEN AND UNLABORED. IN NO ACUTE DISTRESS. CALL LIGHT WITHIN REACH. BED IN LOWEST POSITION. CALL LIGHT WITHIN REACH. WILL CONTINUE TO MONITOR.
[2018-09-28 04:18] VITALS: BP 111/64
[2018-09-28 06:40] LABS: BASOPHIL % 0.9 % (0-2); PLATELET COUNT 260 x10^3mcL (130-400)
[2018-09-28 06:47] LABS: RED CELL DISTRIBUTION WIDTH 18.5 % (11.5-14.5)
--- NOTE | 2018-09-28 07:00 | NUR ---
RECEIVED REPORT FROM EDDIE RN, PT IN NO ACUTE RESP DISTRESS
[2018-09-28 07:01] LABS: CALCIUM 8.4 mg/dL (8.5-10.1); CREATININE SERUM 1.6 mg/dL (0.7-1.3); MAGNESIUM 1.6 mg/dL (1.8-2.4); PHOSPHOROUS 4.6 mg/dL (2.5-4.9); POTASSIUM SERUM 3.8 mmol/L (3.5-5.1)
--- NOTE | 2018-09-28 07:20 | NUR ---
PT RESTING IN BED, IN NO APPARENT DISTRESS, NO FACIAL DROOP/SLURRED SPEECH, VERBAL, ENLISH, PERRLA, CALM AND COPPERATIVE, RESP EVEN, NO SOB/COUGH, CHEST RISE SYMMETRICALLY, RA, DENIED CP/PRESSURE/HANKS, DENIED N/V/D, TELE #4, HR-113 AT THIS TIME, ABD SOFT AND NON-TENDER TO TOUCH, BS ACTIVE X 4, CONTINENT, AMBULATORY, PALP PULSES, CAP REFIL < 2 SECS, IV PATENT, NO INFILTRATION NOTED, ALL NEEDS ADRESSED AT THIS TIME, SAFETY PROTOCOL FOLLOWED, CONTINUE TO MONITOR
[2018-09-28 08:36] VITALS: BP 130/81
[2018-09-28 09:03] VITALS: BP 123/89
[2018-09-28] MEDS ORDERED: ELIQUIS5 MG PO (09:10)
--- NOTE | 2018-09-28 09:23 | NUR ---
PT RESTING IN BED, IN NO ACUTE RESP DISTRESS, AM MED GIVEN PER MD ORDER VIA EMAR, TAKEN WELL, NO SIDE EFFECT NOTED AT THIS TIME, ALL NEEDS ADDRESSED SAFETY PROTOCOL FOLLOWED, KYM TO MONITOR
--- NOTE | 2018-09-28 11:27 | NUR ---
PT SLEEPING IN BED BUT EASILY AROUSED, MADE AWARE OF DC ORDER, VERBALLY UNDERSTANDING, ALL NEEDS ADDRESSED AT THIS TIME, CONTINUE TO MONITOR
--- NOTE | 2018-09-28 12:10 | NUR ---
TELE MONITOR # 4 REMOVED BY CHARGE NURSE MINOO PRIOR PT SHOWER AND GAVE TO SHANIKA TELEMONITOR INFUSION THERAPY NURSE
[2018-09-28 12:19] VITALS: BP 126/71
--- NOTE | 2018-09-28 13:20 | NUR ---
PT HAD SHOWER
--- NOTE | 2018-09-28 13:51 | NUR ---
IV REMOVED, IV CATH TIP INTACT, PRESSURE APPLIED, NO ACTIVE BLEEDING NOTED
--- NOTE | 2018-09-28 14:21 | NUR ---
PT D/C FROM [facility], 2 BUS TICKETS PROVIDED BY TOYA ASENCIO PAPER SIGNED AND KEPT IN CHART, PT EDUCATED A/B MEDICAL CONDITION, MEDICATION, SIDE EFFECT, MONITOR, EMERGENCY CONTACT, F/U AND PT VERBALLY UNDERSTANDING HIS RESPONSIBILITY TO F/U WITH APPOINTED APPOINTMENT WITH PCP ON Sep, PT SIGNED HOMELESS ARRANGEMENT WAIVER FORM AND SAID WILL TAKE THE BUS TO HIS MOTHER'S HOUSE, ALL NEEDS ADDRESSED AT THIS TIME, PT ASSITED BY NURSING STAFFS TO LOBBY, PT TOOK BUS TO MOTHER'S HOUSE
--- NOTE | 2018-09-28 14:22 | NUR ---
MD PRESCRIPTION GIVEN TO PT AND PT AWARE TO F/U WITH P/U MED AT THE CLOSE BY PHARMACY, VERBALLY UNDERSTANDING
== END 2018-09-28 15:01 | disposition home or self-care (01) | DRG 194 ==
LOC: ED 15:12 → DU 17:59
PROVIDERS: Internal Medicine; ADMIT Internal Medicine Pulmonary Disease
DX: I11.0 Hypertensive heart disease with heart failure (principal); N17.0 Acute kidney failure with tubular necrosis; I50.43 Acute on chronic combined systolic (congestive) and diastolic (congestive) heart failure; E44.0 Moderate protein-calorie malnutrition; I42.9 Cardiomyopathy, unspecified; F15.288 Other stimulant dependence with other stimulant-induced disorder; E11.9 Type 2 diabetes mellitus without complications; E78.5 Hyperlipidemia, unspecified; F17.210 Nicotine dependence, cigarettes, uncomplicated; I25.2 Old myocardial infarction; Z59.0 Homelessness; Z68.35 Body mass index [BMI] 35.0-35.9, adult; Z95.810 Presence of automatic (implantable) cardiac defibrillator; Z91.14 Patient's other noncompliance with medication regimen; Z79.01 Long term (current) use of anticoagulants; Z79.82 Long term (current) use of aspirin
CPT/HCPCS: 82962; 83880; C9113; G0378; J1650; J1940; Q0092

== ENCOUNTER 2018-11-01 14:50 | Emergency (ER) | payer OTHER ==
[~2018-11-01] VITALS: Ht 172.7 cm; Wt 95.3 kg
[~2018-11-01 14:50] MED LIST changes: +ELIQUIS5 MG PO
[2018-11-01 14:56] VITALS: BP 126/96; Ht 172.7 cm; Wt 95.3 kg
== END 2018-11-01 17:57 | disposition left against medical advice (07) ==
LOC: ED 14:50
DX: Z53.21 Procedure and treatment not carried out due to patient leaving prior to being seen by health care provider (principal)

== ENCOUNTER 2018-11-13 04:58 | Emergency (ER) | payer OTHER ==
[~2018-11-13] VITALS: Ht 172.7 cm; Wt 97.5 kg
[2018-11-13 05:01] VITALS: Ht 172.7 cm; Wt 97.5 kg
[2018-11-13 06:49] LABS: CALCIUM 8.3 mg/dL (8.5-10.1); CARBON DIOXIDE 25.8 mmol/L (21-32); CREATININE SERUM 1.8 mg/dL (0.7-1.3); POTASSIUM SERUM 4.6 mmol/L (3.5-5.1)
[2018-11-13 06:54] LABS: BILIRUBIN TOTAL 0.53 mg/dL (0.20-1.00); TOTAL PROTEIN, SERUM 7.6 g/dL (6.4-8.2)
[2018-11-13 06:57] LABS: ALBUMIN 2.9 g/dL (3.4-5.0); BASOPHIL % 0.9 % (0-2); PLATELET COUNT 266 x10^3mcL (130-400)
[2018-11-13 06:58] LABS: RED CELL DISTRIBUTION WIDTH 16.8 % (11.5-14.5)
[2018-11-13 09:08] LABS: AMPHETAMINE QUAL UR POSITIVE (See below)
[2018-11-13 10:15] VITALS: BP 138/95
== END 2018-11-13 10:15 | disposition left against medical advice (07) ==
LOC: ED 04:58
PROVIDERS: Specialist
DX: I25.10 Atherosclerotic heart disease of native coronary artery without angina pectoris (principal); I11.0 Hypertensive heart disease with heart failure; I50.9 Heart failure, unspecified; E11.9 Type 2 diabetes mellitus without complications; E78.00 Pure hypercholesterolemia, unspecified; E11.40 Type 2 diabetes mellitus with diabetic neuropathy, unspecified; Z86.73 Personal history of transient ischemic attack (TIA), and cerebral infarction without residual deficits; Z88.0 Allergy status to penicillin; Z88.1 Allergy status to other antibiotic agents
CPT/HCPCS: 83880; J1940; Q0092

== ENCOUNTER 2018-11-14 15:36 | Emergency (ER) | payer OTHER ==
[2018-11-14 17:02] LABS: BASOPHIL % 1.4 % (0-2); PLATELET COUNT 261 x10^3mcL (130-400)
[2018-11-14 17:03] LABS: RED CELL DISTRIBUTION WIDTH 16.6 % (11.5-14.5)
[2018-11-14 17:27] LABS: CALCIUM 8.1 mg/dL (8.5-10.1); CARBON DIOXIDE 22.7 mmol/L (21-32); POTASSIUM SERUM 4.2 mmol/L (3.5-5.1)
[2018-11-14 17:32] LABS: BILIRUBIN TOTAL 0.61 mg/dL (0.20-1.00); TOTAL PROTEIN, SERUM 6.6 g/dL (6.4-8.2)
[2018-11-14 17:42] LABS: ALBUMIN 2.5 g/dL (3.4-5.0)
[2018-11-14 20:30] VITALS: BP 141/95
== END 2018-11-14 22:16 | disposition short-term general hospital (02) ==
LOC: ED 15:36
PROVIDERS: Emergency Medicine
DX: I11.0 Hypertensive heart disease with heart failure (principal); I50.9 Heart failure, unspecified; E11.9 Type 2 diabetes mellitus without complications; E78.00 Pure hypercholesterolemia, unspecified; Z88.0 Allergy status to penicillin; Z88.1 Allergy status to other antibiotic agents
CPT/HCPCS: 82962; 83880; J1940; Q0092

== ENCOUNTER 2018-11-27 20:18 | Emergency (ER) | payer OTHER ==
[~2018-11-27] VITALS: Ht 172.7 cm; Wt 115.7 kg
[2018-11-27 20:20] VITALS: Ht 172.7 cm; Wt 115.7 kg
[2018-11-27 21:19] LABS: BASOPHIL % 1.7 % (0-2); PLATELET COUNT 300 x10^3mcL (130-400)
[2018-11-27 21:22] LABS: RED CELL DISTRIBUTION WIDTH 15.6 % (11.5-14.5)
[2018-11-27 21:31] LABS: CALCIUM 8.1 mg/dL (8.5-10.1); CARBON DIOXIDE 24.2 mmol/L (21-32); CREATININE SERUM 1.8 mg/dL (0.7-1.3); POTASSIUM SERUM 4.4 mmol/L (3.5-5.1)
[2018-11-27 21:35] LABS: BILIRUBIN TOTAL 0.6 mg/dL (0.20-1.00); TOTAL PROTEIN, SERUM 6.9 g/dL (6.4-8.2)
[2018-11-27 21:36] LABS: ALBUMIN 2.6 g/dL (3.4-5.0)
[2018-11-27 22:53] LABS: AMPHETAMINE QUAL UR POSITIVE (See below)
[2018-11-27 23:45] VITALS: BP 118/73
== END 2018-11-27 23:45 | disposition home or self-care (01) ==
LOC: ED 20:18
PROVIDERS: Emergency Medicine
DX: R07.89 Other chest pain (principal); F15.10 Other stimulant abuse, uncomplicated; R06.02 Shortness of breath; M79.10 Myalgia, unspecified site; I11.0 Hypertensive heart disease with heart failure; I50.9 Heart failure, unspecified; E11.9 Type 2 diabetes mellitus without complications; E78.00 Pure hypercholesterolemia, unspecified; Z98.890 Other specified postprocedural states
CPT/HCPCS: 36415; 83880

== ENCOUNTER 2018-11-28 16:04 | Emergency (ER) | payer OTHER ==
[~2018-11-28] VITALS: Ht 172.7 cm; Wt 101.6 kg
[2018-11-28 16:14] VITALS: Ht 172.7 cm; Wt 101.6 kg
[2018-11-28 17:07] LABS: BASOPHIL % 1.9 % (0-2); PLATELET COUNT 267 x10^3mcL (130-400)
[2018-11-28 17:17] LABS: CALCIUM 8.4 mg/dL (8.5-10.1); CARBON DIOXIDE 28.8 mmol/L (21-32); POTASSIUM SERUM 4.3 mmol/L (3.5-5.1)
[2018-11-28 17:22] LABS: BILIRUBIN TOTAL 0.5 mg/dL (0.20-1.00); TOTAL PROTEIN, SERUM 7.4 g/dL (6.4-8.2)
[2018-11-28 17:23] LABS: ALBUMIN 2.8 g/dL (3.4-5.0)
[2018-11-28 17:35] LABS: RED CELL DISTRIBUTION WIDTH 15.8 % (11.5-14.5)
[2018-11-28 22:20] VITALS: BP 133/89
== END 2018-11-28 22:20 | disposition short-term general hospital (02) ==
LOC: ED 16:04
DX: I13.0 Hypertensive heart and chronic kidney disease with heart failure and stage 1 through stage 4 chronic kidney disease, or unspecified chronic kidney disease (principal); E11.22 Type 2 diabetes mellitus with diabetic chronic kidney disease; N18.9 Chronic kidney disease, unspecified; I50.9 Heart failure, unspecified; E78.00 Pure hypercholesterolemia, unspecified; Z88.0 Allergy status to penicillin; Z88.1 Allergy status to other antibiotic agents
CPT/HCPCS: 83880; J1940

== ENCOUNTER 2018-12-11 20:57 | Emergency (ER) | payer OTHER ==
[2018-12-11 22:27] LABS: BASOPHIL % 1.2 % (0-2); PLATELET COUNT 233 x10^3mcL (130-400)
[2018-12-11 22:35] LABS: RED CELL DISTRIBUTION WIDTH 15.6 % (11.5-14.5)
[2018-12-11 22:54] LABS: CALCIUM 8.3 mg/dL (8.5-10.1); CARBON DIOXIDE 24.4 mmol/L (21-32); CREATININE SERUM 1.9 mg/dL (0.7-1.3); POTASSIUM SERUM 4.8 mmol/L (3.5-5.1)
[2018-12-11 22:58] LABS: BILIRUBIN TOTAL 0.52 mg/dL (0.20-1.00); TOTAL PROTEIN, SERUM 7.3 g/dL (6.4-8.2)
[2018-12-11 22:59] LABS: ALBUMIN 2.7 g/dL (3.4-5.0)
--- NOTE | 2018-12-11 23:41 | NUR ---
UNABLE TO OBTAIN ABG. DR CARLSON MADE AWARE
[2018-12-12 01:06] LABS: AMPHETAMINE QUAL UR POSITIVE (See below)
[2018-12-12 04:36] VITALS: BP 137/92
== END 2018-12-12 04:35 | disposition short-term general hospital (02) ==
LOC: ED 20:57
PROVIDERS: Emergency Medicine
DX: R09.02 Hypoxemia (principal); R06.00 Dyspnea, unspecified; I11.0 Hypertensive heart disease with heart failure; I50.9 Heart failure, unspecified; F15.10 Other stimulant abuse, uncomplicated; E11.40 Type 2 diabetes mellitus with diabetic neuropathy, unspecified; E78.00 Pure hypercholesterolemia, unspecified; Z88.0 Allergy status to penicillin; Z88.1 Allergy status to other antibiotic agents
CPT/HCPCS: 83880; J1940; J2310

== ENCOUNTER 2019-01-09 15:01 | Emergency (ER) | payer OTHER ==
[~2019-01-09] VITALS: Ht 172.7 cm; Wt 90.7 kg
[2019-01-09 16:48] LABS: BASOPHIL % 0.9 % (0-2); PLATELET COUNT 329 x10^3mcL (130-400); RED CELL DISTRIBUTION WIDTH 15.3 % (11.5-14.5)
[2019-01-09 17:18] LABS: CALCIUM 9.1 mg/dL (8.5-10.1); CHLORIDE SERUM 105 mmol/L (98-107); CREATININE SERUM 1.6 mg/dL (0.7-1.3); GFR1 48 mL/min; GLUCOSE SERUM 96 mg/dL (74-106); POTASSIUM SERUM 4.1 mmol/L (3.5-5.1); SODIUM SERUM 143 mmol/L (136-145)
[2019-01-09 17:24] LABS: AMPHETAMINE QUAL UR POSITIVE (See below)
[2019-01-09 17:30] LABS: ALKALINE PHOSPHATASE 84 U/L (46-116); ALT/SGPT 28 U/L (16-63); AST/SGOT 27 U/L (15-37); BILIRUBIN TOTAL 0.4 mg/dL (0.20-1.00); T4(THYROXINE) 9.3 ug/dL (4.7-13.3)
[2019-01-09 17:31] LABS: ALBUMIN 2.9 g/dL (3.4-5.0); TOTAL PROTEIN, SERUM 8.5 g/dL (6.4-8.2)
[2019-01-09 23:05] VITALS: BP 112/72
== END 2019-01-09 22:45 | disposition short-term general hospital (02) ==
LOC: ED 15:01
PROVIDERS: Emergency Medicine
DX: I63.9 Cerebral infarction, unspecified (principal); F15.10 Other stimulant abuse, uncomplicated; I11.0 Hypertensive heart disease with heart failure; I50.9 Heart failure, unspecified; E11.40 Type 2 diabetes mellitus with diabetic neuropathy, unspecified; E78.00 Pure hypercholesterolemia, unspecified; Z59.0 Homelessness; Z98.890 Other specified postprocedural states; Z88.0 Allergy status to penicillin; Z88.1 Allergy status to other antibiotic agents
CPT/HCPCS: 36415; G0480; Q9967

== ENCOUNTER 2019-03-23 18:54 | Emergency (ER) | payer OTHER ==
[~2019-03-23] VITALS: Ht 172.7 cm; Wt 97.1 kg
[2019-03-23 19:22] VITALS: Ht 172.7 cm; Wt 97.1 kg
[2019-03-23 20:17] LABS: BASOPHIL % 1.6 % (0-2); PLATELET COUNT 234 x10^3mcL (130-400)
[2019-03-23 20:18] LABS: RED CELL DISTRIBUTION WIDTH 19.1 % (11.5-14.5)
[2019-03-23 20:30] LABS: AMPHETAMINE QUAL UR POSITIVE (See below)
[2019-03-23 21:00] LABS: CALCIUM 8.9 mg/dL (8.5-10.1); CARBON DIOXIDE 26.5 mmol/L (21-32); CHLORIDE SERUM 104 mmol/L (98-107); CREATININE SERUM 1.3 mg/dL (0.7-1.3); GFR1 > 60 mL/min; GLUCOSE SERUM 90 mg/dL (74-106); POTASSIUM SERUM 4.4 mmol/L (3.5-5.1); SODIUM SERUM 141 mmol/L (136-145)
[2019-03-23 21:01] LABS: ALKALINE PHOSPHATASE 90 U/L (46-116); ALT/SGPT 18 U/L (16-63); AST/SGOT 17 U/L (15-37); BILIRUBIN TOTAL 0.7 mg/dL (0.20-1.00); TOTAL PROTEIN, SERUM 7.4 g/dL (6.4-8.2)
[2019-03-23 21:06] LABS: ALBUMIN 3.2 g/dL (3.4-5.0); CHOLESTEROL 205 mg/dL (<200)
[2019-03-24 00:50] VITALS: BP 129/69
== END 2019-03-24 00:50 | disposition short-term general hospital (02) ==
LOC: ED 18:54
PROVIDERS: Specialist
DX: S06.309A Unspecified focal traumatic brain injury with loss of consciousness of unspecified duration, initial encounter (principal); E78.00 Pure hypercholesterolemia, unspecified; E11.40 Type 2 diabetes mellitus with diabetic neuropathy, unspecified; I25.2 Old myocardial infarction; Z95.810 Presence of automatic (implantable) cardiac defibrillator; Z88.0 Allergy status to penicillin; Z88.1 Allergy status to other antibiotic agents; X58.XXXA Exposure to other specified factors, initial encounter; Y93.89 Activity, other specified; Y92.89 Other specified places as the place of occurrence of the external cause; Y99.8 Other external cause status
CPT/HCPCS: 36415; 82962; G0480; J1630; J2060; Q0092

== ENCOUNTER 2019-07-07 08:54 | Emergency (ER) | payer OTHER ==
[~2019-07-07] VITALS: Ht 172.7 cm; Wt 98.4 kg
[2019-07-07 08:57] VITALS: Ht 172.7 cm; Wt 98.4 kg
[2019-07-07 09:30] VITALS: BP 145/98
== END 2019-07-07 09:30 | disposition home or self-care (01) ==
LOC: ED 08:54
DX: L02.414 Cutaneous abscess of left upper limb (principal); I50.9 Heart failure, unspecified; I10 Essential (primary) hypertension; E11.9 Type 2 diabetes mellitus without complications; E78.00 Pure hypercholesterolemia, unspecified; I25.2 Old myocardial infarction

== ENCOUNTER 2019-09-01 12:02 | Inpatient (IN) | payer OTHER ==
[~2019-09-01] VITALS: Ht 182.9 cm; Wt 113.4 kg
[2019-09-01 12:04] VITALS: Ht 182.9 cm; Wt 113.4 kg
[2019-09-01 13:18] LABS: BASOPHIL % 0.6 % (0-2); PLATELET COUNT 233 x10^3mcL (130-400)
[2019-09-01 13:37] LABS: ALBUMIN 3.9 g/dL (3.4-5.0); ALKALINE PHOSPHATASE 76 U/L (46-116); ALT/SGPT 25 U/L (16-63); AST/SGOT 24 U/L (15-37); CALCIUM 8.7 mg/dL (8.5-10.1); CARBON DIOXIDE 22.6 mmol/L (21-32); CHLORIDE SERUM 102 mmol/L (98-107); CREATININE SERUM 3.9 mg/dL (0.7-1.3); GFR1 17 mL/min; GLUCOSE SERUM 99 mg/dL (74-106); SODIUM SERUM 139 mmol/L (136-145); TOTAL PROTEIN, SERUM 7.9 g/dL (6.4-8.2)
[2019-09-01 13:49] LABS: RED CELL DISTRIBUTION WIDTH 15.4 % (11.5-14.5)
[2019-09-01 14:35] LABS: UA SPECIFIC GRAVITY >=1.030 (1.005-1.035); microscopic required? YES; urine erythrocyte NEGATIVE (NEGATIVE)
[2019-09-01 14:52] LABS: AMPHETAMINE QUAL UR POSITIVE (See below)
[2019-09-01 18:15] VITALS: BP 106/63
[2019-09-01 19:06] LABS: FREE T4 1.45 ng/dL (0.76-1.46); FREE THYROXINE INDEX 3.9 ug/dL (1.4-4.5)
[2019-09-01 19:18] LABS: CHOLESTEROL/HDL RATIO 2.3
[2019-09-02 00:20] LABS: T3 TOTAL 1.31 ng/mL
== END 2019-09-01 23:55 | disposition left against medical advice (07) | DRG 812 ==
LOC: ED 12:02 → DU 15:02 → IC 15:02 → ED 15:02 → EDBEDREQSVC 15:40 → IC 17:45 → DU 17:45 → IC 17:45
PROVIDERS: Emergency Medicine; ADMIT Family Medicine; ATTEND Family Medicine
DX: T43.621A Poisoning by amphetamines, accidental (unintentional), initial encounter (principal); G92 Toxic encephalopathy; N17.9 Acute kidney failure, unspecified; E11.22 Type 2 diabetes mellitus with diabetic chronic kidney disease; E11.40 Type 2 diabetes mellitus with diabetic neuropathy, unspecified; I50.9 Heart failure, unspecified; E78.00 Pure hypercholesterolemia, unspecified; G47.33 Obstructive sleep apnea (adult) (pediatric); N18.9 Chronic kidney disease, unspecified; E86.0 Dehydration; F15.10 Other stimulant abuse, uncomplicated; Z53.29 Procedure and treatment not carried out because of patient's decision for other reasons; I13.0 Hypertensive heart and chronic kidney disease with heart failure and stage 1 through stage 4 chronic kidney disease, or unspecified chronic kidney disease; Z95.810 Presence of automatic (implantable) cardiac defibrillator; Z88.0 Allergy status to penicillin; Z88.1 Allergy status to other antibiotic agents; I25.2 Old myocardial infarction; Z79.899 Other long term (current) drug therapy
CPT/HCPCS: 83880; 84439; G0378; G0480; J3490; J7030; J7050; J7060; Q0092; Q9967